=== PATIENT | male | born 1950 | race Caucasian/White ===

== ENCOUNTER → 2016-07-02 | Outpatient (CLI) | payer OTHER, MEDICARE ==
[~2016-07-02] MED LIST: AMLO-114 PO; ASPI-232 PO; ATOR-22 PO; OMEG10007 PO; TAMS0.4C38 PO
== END | disposition home or self-care (01) ==
LOC: C.LAB 10:31
PROVIDERS: ATTEND Urology
DX: R97.20 Elevated prostate specific antigen [PSA] (principal)

== ENCOUNTER → 2017-07-02 | Outpatient (CLI) | payer OTHER, MEDICARE | END | disposition home or self-care (01) | LOC: C.LAB 13:04 | PROVIDERS: ATTEND Urology | DX: R97.20 Elevated prostate specific antigen [PSA] (principal) ==

== ENCOUNTER 2019-10-27 05:09 | Inpatient (IN) ==
--- NOTE | 2019-10-21 14:43 | Anesthesiology Consultation ---
Date of Service October 21, 2019 Assessment & Plan (1) Encounter for pre-operative examination: Per nursing phone assessment on 10/19/19: Travel screen negative. No known COVID-19 positive contacts. No current COVID-19 related symptoms. Patient reports they are scheduled for COVID-19 testing to be done 10/22 at [facility]. Awaiting results. - Preop labs out of date: will check CBC, BMP, coags AM DOS Chart Review Chart Review: Acceptable Risk for Surgery (pending COVID testing (10/22) and preop labs AM DOS) History Surgery Operation Date: 10/27/19 08:50 Proposed Procedures p Right Anterior Total Hip Arthroplasty - Michael Bergman DO Height/Weight Height: 5 ft 11 in Weight: 104.326 kg Allergies Allergy/AdvReac Type Severity Reaction Status Date / Time Penicillins Allergy Unknown hives Verified 10/19/19 10:14 Medications Home Medications Medication Instructions Recorded Confirmed Last Taken alfuzosin 10 mg PO HS 08/01/19 10/19/19 Unknown amlodipine 10 mg PO QAM 08/01/19 10/19/19 Unknown aspirin [Aspir-81] 81 mg PO HS 08/01/19 10/19/19 Unknown atorvastatin 20 mg PO QAM 08/01/19 10/19/19 Unknown celecoxib 200 mg PO BID 08/01/19 10/19/19 Unknown hydrochlorothiazide 12.5 mg PO QAM 08/01/19 10/19/19 Unknown lansoprazole 15 mg PO HS 08/01/19 10/19/19 Unknown Wheeled Walker #1 ea 08/07/19 10/19/19 Unknown Past Medical History Medical History Acid reflux Well controlled and stable Foot drop, 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- wears brace Hiatal hernia History of kidney stones X1/PASSED ON OWN Hyperlipidemia Hypertension Past Surgical History Surgical History History of ankle surgery R History of colonoscopy History of lumbar surgery X2 (NO HARDWARE) Social History Smoking Status: Never smoker Do You Dip or Chew Tobacco: No Hx Alcohol Use: No alcohol intake frequency: holidays/special occasions only Hx Substance Use: No substance use type: does not use Testing Electrocardiogram Date: 08/07/19 Findings: + SB @ (56) Chest X-Ray Date: 08/07/19 Findings: + NAD
--- NOTE | 2019-10-26 07:44 | History & Physical Report ---
Date of Service October 26, 2019 Assessment & Plan (1) Osteoarthritis of right hip: We will proceed with a right anterior total of arthroplasty. Postoperatively he will be started on aspirin for DVT prophylaxis and kept overnight in the hospital for postoperative medical management. He plans to use energy therapy upon discharge. Errol is a low risk for hip replacement surgery. He does not have any major comorbidities. Present on Admission?: Yes History of Present Illness Chief Complaint: Primary osteoarthritis of the right hip Primary Care Provider: Bobby Archuleta Errol is a pleasant 69-year-old male who is been dealing with a 1 year history of increasing right hip pain. He has had x-rays and an MRI of the right hip which shows advancing osteoarthritis. After failing extensive conservative treatment, including injections, he has elected to proceed with a right anterior total hip arthroplasty. Allergies Allergy/AdvReac Type Severity Reaction Status Date / Time Penicillins Allergy Unknown hives Verified 10/19/19 10:14 Home Medications Home Medications Medication Instructions Recorded Confirmed Type alfuzosin 10 mg PO HS 08/01/19 10/19/19 History amlodipine 10 mg PO QAM 08/01/19 10/19/19 History aspirin [Aspir-81] 81 mg PO HS 08/01/19 10/19/19 History atorvastatin 20 mg PO QAM 08/01/19 10/19/19 History celecoxib 200 mg PO BID 08/01/19 10/19/19 History hydrochlorothiazide 12.5 mg PO QAM 08/01/19 10/19/19 History lansoprazole 15 mg PO HS 08/01/19 10/19/19 History Wheeled Walker #1 ea 08/07/19 10/19/19 Rx Past Med/Surg History Medical History Acid reflux Well controlled and stable Foot drop, 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- wears brace Hiatal hernia History of kidney stones X1/PASSED ON OWN Hyperlipidemia Hypertension Surgical History History of ankle surgery R History of colonoscopy History of lumbar surgery X2 (NO HARDWARE) Social History Preferred Language: Bulgarian Communication Ability: Effective Denitrator Required: No Beliefs That Will Affect Care: None Current Living Situation: Spouse Feels Safe at Home: Yes Smoking Status: Never smoker Second Hand Exposure: No ; Hx Alcohol Use: No Hx Substance Use: No Review of Systems Review of Systems: All systems reviewed & are unremarkable except as noted in HPI & below Physical Exam Constitutional: WD/WN, vitals as above Eyes: PERRL, conjunctivae normal, anicteric sclerae ENMT: external ear and nose normal, oropharynx normal Neck: trachea midline, no thyromegaly Respiratory: normal respiratory effort Cardiovascular: RRR, no murmur, no edema Gastrointestinal (Abdomen): normal bowel sounds, soft, nontender, no hepatosplenomegaly Musculoskeletal: Physical examination of the right hip reveals decreased range of motion with flexion, internal and external rotation. There is significant groin pain with forced internal rotation of the hip his leg lengths are essentially equal. Psychiatric: A+Ox3, euthymic affect Results & Data Results & Data ([facility]) Diagnostic Findings Radiographs of the right hip and pelvis demonstrate advanced osteoarthritis with joint space narrowing osteophyte formation and togx-ap-fril articulation. PG Care Time/CCT Total # of Minutes Spent Total Time Spent with Patient: Total time spent is greater than 50% in coordination of care (as documented) at patient's floor/unit and/or counseling patient: Coding Level of Care Code 63719 Initial Inpt Care Lvl 3 Diagnoses Osteoarthritis of right hip M16.11
[2019-10-27 05:45] LABS: Basophils # (auto) 0.03 K/uL (0-0.2); Basophils % (auto) 0.4 %; Eosinophils # (auto) 0.18 K/uL (0-0.5); Eosinophils % (auto) 2.2 %; Hematocrit (blood only) 48.1 % (42-52); Hemoglobin 15.7 g/dL (14.0-18.0); Immature Granulocytes # (auto) 0.03 K/uL (0.00-0.02); Immature Granulocytes % (auto) 0.4 %; Lymphocytes # (auto) 2.19 K/uL (1.2-3.4); Mean Corpuscular Hemoglobin 29.9 pg (25-34); Mean Corpuscular Volume 91.6 fL (80-100); Mean Platelet Volume 12.1 fL (7.4-10.4); Monocytes # (auto) 0.64 K/uL (0.11-0.59); Monocytes % (auto) 7.9 %; Neutrophils # (auto) 5.03 K/uL (1.4-6.5); Neutrophils % (auto) 62.1 %; Platelet Count 169 K/uL (130-400); RDW Coefficient of Variation 13.5 % (11.5-14.5); RDW Standard Deviation 45.3 fL (36.4-46.3); Red Blood Count 5.25 M/uL (4.7-6.1)
[2019-10-27 05:46] LABS: Mean Corpuscular Hgb Conc 32.6 g/dL (32-36)
[2019-10-27 05:53] LABS: Partial Thromboplastin Ratio 0.9; Partial Thromboplastin Time 25.9 Seconds (21.0-31.0); Prothrombin Time 10.9 Seconds (9.0-12.0)
[2019-10-27] MEDS ORDERED: ACETAMINOPHEN 500 MG TAB PO SCH (06:00)
[2019-10-27] MEDS ORDERED: ROPIVACAINE 0.5% HCL/PF 150 MG, BUPIVACAINE 0.5% MPF 30 ML, EPINEPHrine 30MG/30ML (OR U... INFIL SCH (06:00)
[2019-10-27] MEDS ORDERED: TRANEXAMIC ACID 1,000 MG **IV Pre-op IV SCH (06:00)
[2019-10-27] MEDS ORDERED: TRANEXAMIC ACID 1,000 MG **IV Intra-op IV SCH (06:00)
[2019-10-27] MEDS ORDERED: LR 60ML/HR IV SCH (06:00)
[2019-10-27] MEDS ORDERED: GABAPENTIN 300 MG CAP PO SCH (06:00)
[2019-10-27] MEDS ORDERED: FAMOTIDINE 20 MG TAB PO SCH (06:00)
[2019-10-27] MEDS ORDERED: CEFAZOLIN 2000MG 2,000 MG/15 ML SYR IV SCH (06:00)
[2019-10-27] MEDS ORDERED: dexAMETHasone 4 MG TAB PO SCH (06:00)
[2019-10-27 06:02] LABS: BUN Creatinine Ratio 16.7 (10-20); Calcium 8.9 mg/dl (8.5-10.1); Creatinine Clr Calc Pharmacy 68.3 ml/min; Est GFR (Non-African American) 58.7; Potassium 3.5 mmol/L (3.5-5.1)
[2019-10-27] MEDS ORDERED: CEFAZOLIN 2,000 MG/15 ML IV PUSH IV ONE (06:28)
[2019-10-27] MEDS ORDERED: PROPOFOL IV EMULSION 10 MG/ML 20 ML VIAL IV ONE ×2 (06:40→08:25)
[2019-10-27] MEDS ORDERED: LIDOCAINE HCL 2% 2 ML VIAL/AMP(20MG/ML) INFIL ONE (06:40)
[2019-10-27] MEDS ORDERED: MIDAZOLAM HCL 1 MG/ML 2ML VIAL ONE (06:41)
--- NOTE | 2019-10-27 06:41 | History & Physical Bridge Note ---
Date of Service October 27, 2019 History & Physical Bridge Note I have examined the patient, reviewed the History & Physical and in the interval since the performance of the History & Physical I have noted the following changes of clinical significance: no changes noted
[2019-10-27] MEDS ORDERED: ORTHO JOINT ANESTHETIC ONE (06:53)
[2019-10-27] MEDS ORDERED: ePHEDrine sulfate 50 MG/ML AMP ONE (07:28)
[2019-10-27] MEDS ORDERED: PHENYLEPHRINE HCL 10 MG/ML VIAL ONE (07:28)
[2019-10-27] MEDS ORDERED: ePHEDrine sulfate 50 MG/ML AMP IV PRN (08:18)
[2019-10-27] MEDS ORDERED: ATROPINE SULFATE 0.1 MG/ML 10ML SYR IV PRN (08:18)
--- NOTE | 2019-10-27 08:26 | Operative Report ---
PG Post Operative Report Pre & Post Diagnosis Operation Date: 10/27/19 07:00 Pre-Op Diagnosis: RIGHT HIP DEGENERATIVE JOINT DISEASE Post-Op Diagnosis: RIGHT HIP DEGENERATIVE JOINT DISEASE I identified the patient and participated in the time-out.: Yes Procedure Operation Date: 10/27/19 07:00 Actual Procedures p Right Anterior Total Hip Arthroplasty(Right) - Michael Bergman DO Surgeon Michael Bergman DO Engineer [employer] Michael Velazquez PAC Estimated Blood Loss 250 Findings Consistent with Post-Op Diagnosis Specimens Right femoral head Complications none Disposition Disposition: Recovery Room Indications Aldo is a pleasant 69-year-old male who is been dealing with chronic increasing right hip and groin pain. X-rays and clinical examination have been diagnostic for primary osteoarthritis of the right hip. After failing conservative treatment, he has elected to proceed with a right anterior total hip arthroplasty. Description of Procedure Implants used I used a Biomet Taperloc total hip arthroplasty system with a size 13 high offset micro Taperloc stem, a 58 mm G7 cup with a 25mm screw, an E1 polyethylene liner, a 40 mm ceramic head with a +3 neck. Aldo arrived at the hospital for the above procedure. He was seen in the preoperative holding area and the operative extremity was identified and signed. He was given a spinal anesthetic, a preoperative antibiotic, and TXA. He was then taken back to the operating room and laid on the table in the supine position. He was given basic sedation. The operative leg was secured to a Puristst leg positioner. The hip was then prepped and draped in sterile fashion. A timeout was done and the patient and the operative extremity was properly identified. An anterior approach was used. Dissection was taken down through the fascia and the tensor muscle belly was retracted laterally and the rectus was retracted medially. The circumflex vessels were identified and ligated. The capsule was then incised and tagged for later repair. The femoral neck was then cut and the femoral head was removed. The acetabulum was exposed. Time was spent doing a complete circumferential labral release. Sequential reaming of the acetabulum up to a size 57 reamer was done. Final reamings were done under fluoroscopy to ensure appropriate version. A Biomet 58 mm G7 cup was then impacted into place. A single 25 mm screw was placed. The E1 polyethylene liner was then snapped into place. Surrounding soft tissues were then injected with 100 cc of an orthopedic pain control cocktail. The proximal femur was then exposed. Sequential broaching up to a size 13 broach was done. Off that broach a size 40 head with a +3 neck was trialed. The hip was reduced and fluoroscopic images showed anatomic alignment of the implants in acceptable length. The broach was removed. The final size 13 high offset micro Taperloc stem was then impacted into place. A ceramic 40 mm head with a +3 neck was then impacted onto the stem and the hip was reduced. Final fluoroscopic images showed anatomic alignment of the hip. The capsule was then closed with #1 Vicryl suture. A dilute betadyne lavage was then done for 3 minutes. The joint was then irrigated with normal saline solution. The fascia was closed with #1 PDS suture. Skin was closed with 2-0 Vicryl, ketty, and a Louise VAC dressing. He was then transferred to a hospital bed and taken to the post anesthesia care unit in stable condition. He tolerated the procedure well. Michael Velazquez PA-C, was present for the entire procedure. He was critical for patient positioning, prepping, draping, retraction exposure, wound closure and application of sterile dressing. I attest to the content of the Intraoperative Record and any orders documented therein. Any exceptions are noted below.
--- NOTE | 2019-10-27 09:09 | Fluoroscopy Report ---
FL hip RT 1V CLINICAL HISTORY: RT ANTERIOR HIP COMPARISON STUDY: None. FLUOROSCOPY TIME: 26 seconds.. FINDINGS: 2 fluoroscopic spot images of the right hip demonstrate a right total hip arthroplasty. The hardware is intact. No fracture or dislocation. IMPRESSION: ACT 112: Negative or not required by law. Electronically signed by: Wil Almodovar M.D. 10/27/2019 9:08 AM
--- NOTE | 2019-10-27 09:25 | XRay Report ---
AP PELVIS, CROSSTABLE LATERAL RIGHT HIP History: Right total hip arthroplasty. Degenerative arthritis. Postop. FINDINGS: The patient is status post a right total hip arthroplasty. The hardware is intact. Skin sta ples are in place. On the lateral view there is a subtle small linear lucency extending from the tip of the femoral prosthesis. This could represent a vascular channel or nondisplaced fracture. IMPRESSION: Right total hip arthroplasty. Subtle small linear lucency extending from the tip of the femoral prost hesis which could represent a vascular channel or nondisplaced fracture. This finding was called/faxe d to referring physician following dictation. ACT 112: Negative or not required by law. Electronically signed by: Wil Almodovar M.D. 10/27/2019 9:24 AM
--- NOTE | 2019-10-27 10:00 | Anesthesiology Progress Note ---
Date of Service October 27, 2019 Anesthesia Post Procedure Vital Signs Vital Signs: Temp Pulse Pulse Resp BP BP Pulse Ox 10/27/19 09:55 55 L 10 L 99/62 L 98 10/27/19 09:45 58 L 16 98/59 L 98 10/27/19 09:35 54 L 11 L 94/62 L 98 10/27/19 09:25 69 12 93/56 L 98 10/27/19 09:15 58 L 10 L 98/62 L 97 10/27/19 09:05 60 13 92/62 L 97 10/27/19 08:55 63 15 88/61 L 98 10/27/19 08:48 36.5 C 74 20 83/57 L 94 10/27/19 05:36 36.8 C 66 16 140/91 95 Pain Intensity Right Hip: Pain Intensity: 0 Transfer of Care Handoff Completed per policy Notes Mental Status: alert / awake / arousable and participated in evaluation Nausea / Vomiting: adequately controlled Pain: adequately controlled Airway Patency, RR, SpO2: stable & adequate BP & HR: stable & adequate Hydration State: stable & adequate Neuraxial Anesthesia: was administered and sensory block is resolving Anesthetic Complications: no major complications apparent and Pt Satisfied with anesthetic care
[2019-10-27] MEDS ORDERED: [UNRECOGNIZED DRUG - OTHER] SCH (10:29)
[2019-10-27] MEDS ORDERED: WALKER SCH (10:29)
[2019-10-27] MEDS ORDERED: METOCLOPRAMIDE HCL INJ 5 MG/ML 2 ML VIAL IV PRN (10:29)
[2019-10-27] MEDS ORDERED: ONDANSETRON INJ 2 MG/ML 2 ML VIAL IV PRN (10:29)
[2019-10-27] MEDS ORDERED: MAGNESIUM HYDROXIDE SUSP 30 ML UDC PO PRN (10:29)
[2019-10-27] MEDS ORDERED: HYDROmorphone INJ 0.5 MG/0.5 ML SYR IV PRN (10:29)
[2019-10-27] MEDS ORDERED: bisacodyL 10 MG SUPP PR PRN (10:29)
[2019-10-27] MEDS ORDERED: NALOXONE HCL 0.4 MG/1 ML VIAL/CARP IV PRN (10:29)
[2019-10-27] MEDS ORDERED: PNEUMOCOCCAL ADMINISTRATION CHARGE ONE (11:04)
[2019-10-27] MEDS ORDERED: PNEUMOCOCCAL POLYSACCHARIDES 25 MCG/0.5 ML VIAL/SYR IM ONE (11:04)
[2019-10-27] MEDS: SODIUM CHLORIDE 0.9% 1000ML 1,000 ML IV SCH ×2 (11:10→20:56)
[2019-10-27] MEDS: KETOROLAC 30 MG/ML VIAL IV SCH ×3 (11:19→23:35)
[2019-10-27] MEDS: hydroCHLOROthiazide 25 MG TAB PO SCH (11:21)
[2019-10-27] MEDS: DOCUSATE SODIUM 100 MG CAP PO SCH ×2 (11:21→21:00)
[2019-10-27] MEDS: MULTIVITAMIN TAB PO SCH (11:22)
[2019-10-27] MEDS: ATORVASTATIN 20 MG TAB PO SCH (11:22)
[2019-10-27] MEDS: AMLODIPINE BESYLATE 5 MG TAB PO SCH (11:22)
[2019-10-27] MEDS: ASPIRIN 81 MG ECTAB PO SCH ×2 (11:23→20:59)
[2019-10-27] MEDS: CEFAZOLIN 2000MG 2,000 MG/15 ML SYR IV SCH ×2 (14:07→22:08)
[2019-10-27] MEDS: ACETAMINOPHEN 500 MG TAB PO SCH ×2 (14:07→21:01)
[2019-10-27] MEDS ORDERED: ALFUZOSIN HCL 10 MG TAB PO SCH (21:00)
[2019-10-27] MEDS ORDERED: SENNA 8.6 MG TAB PO SCH (21:00)
[2019-10-27] MEDS ORDERED: PANTOprazole 40 MG TAB PO SCH (21:00)
[2019-10-28] MEDS: ACETAMINOPHEN 500 MG TAB PO SCH ×2 (05:53→13:02)
[2019-10-28] MEDS: KETOROLAC 30 MG/ML VIAL IV SCH ×2 (05:53→12:39)
[2019-10-28 06:10] LABS: Basophils # (auto) 0.01 K/uL (0-0.2); Basophils % (auto) 0.1 %; Hematocrit (blood only) 38.6 % (42-52); Hemoglobin 12.9 g/dL (14.0-18.0); Immature Granulocytes # (auto) 0.03 K/uL (0.00-0.02); Immature Granulocytes % (auto) 0.2 %; Lymphocytes # (auto) 0.88 K/uL (1.2-3.4); Lymphocytes % (auto) 6.7 %; Mean Corpuscular Hemoglobin 30.4 pg (25-34); Mean Corpuscular Hgb Conc 33.4 g/dL (32-36); Mean Corpuscular Volume 90.8 fL (80-100); Mean Platelet Volume 11.7 fL (7.4-10.4); Monocytes # (auto) 0.79 K/uL (0.11-0.59); Neutrophils # (auto) 11.39 K/uL (1.4-6.5); Platelet Count 146 K/uL (130-400); RDW Coefficient of Variation 13.4 % (11.5-14.5); RDW Standard Deviation 44.1 fL (36.4-46.3); Red Blood Count 4.25 M/uL (4.7-6.1)
[2019-10-28 06:43] LABS: BUN Creatinine Ratio 17.7 (10-20); Calcium 8.5 mg/dl (8.5-10.1); Creatinine Clr Calc Pharmacy 77.1 ml/min; Est GFR (African American) 78.7; Est GFR (Non-African American) 67.9; Potassium 3.6 mmol/L (3.5-5.1)
--- NOTE | 2019-10-28 06:48 | Orthopedic Progress Note ---
Date of Service October 28, 2019 Assessment & Plan (1) History of right hip replacement: Overall he is doing very well. He is not having much pain in the right hip. He can be up and ambulating today with physical therapy. He is on aspirin for DVT prophylaxis. He can be discharged home later today. He will follow-up with orthopedics in 2 weeks. Present on Admission?: Yes Subjective Errol was seen and examined at bedside this morning. Overall he is doing very well. He is not having too much pain in the right hip. He has been up and ambulating to the bathroom. His pain is controlled and he has no complaints. Physical Exam Musculoskeletal: On physical examination of the right hip, the Louise VAC dressing is to suction. His leg lengths are equal. He has active dorsiflexion and plantarflexion of his right ankle. Sensation is intact. Results & Data ([facility]) Vital Signs (Past 12 Hours) Vital Signs Temp Pulse Resp BP Pulse Ox 10/28/19 02:42 36.5 C 58 L 16 111/68 95 10/27/19 23:30 36.5 C 55 L 16 116/68 97 10/27/19 19:25 36.4 C L 75 17 122/78 95 Laboratory Results H & H 10/27/19 10/28/19 Range/Units 05:26 05:57 Hgb 15.7 12.9 L (14.0-18.0) g/dL Hct 48.1 38.6 L (42-52) % Coagulation 10/27/19 Range/Units 05:26 INR 1.0 (0.9-1.1) Diagnostic Findings Postoperative x-rays of the right hip show the prosthesis to be in anatomic alignment without any evidence of fracture, dislocation, or loosening. There is a small nutrient vessel which was pointed out by the radiologist on x-ray. This does not appear to be any sort of fracture. PG Care Time/CCT Total # of Minutes Spent Total Time Spent with Patient: Total time spent is greater than 50% in coordination of care (as documented) at patient's floor/unit and/or counseling patient: Coding Level of Care Code None Diagnoses History of right hip replacement Z96.641
--- NOTE | 2019-10-28 06:50 | Discharge Summary ---
Date of Service October 28, 2019 Admission HPI Per Admitting Provider Errol is a pleasant 69-year-old male who is been dealing with a 1 year history of increasing right hip pain. He has had x-rays and an MRI of the right hip which shows advancing osteoarthritis. After failing extensive conservative treatment, including injections, he has elected to proceed with a right anterior total hip arthroplasty. Principal Diagnosis Right total hip arthroplasty Discharge Data Allergies Allergy/AdvReac Type Severity Reaction Status Date / Time Penicillins Allergy Unknown hives Verified 10/27/19 05:30 Consultations 10/28/19 08:00 Consult Case Management - Discharge Planning Routine Procedures Performed Operation Date: 10/27/19 07:00 Actual Procedures p Right Anterior Total Hip Arthroplasty(Right) - Michael Bergman DO Ordered Studies 10/27/19 07:00 FL fluoroscopy <1hr Routine FL hip RT 1V Routine Hospital Course (1) History of right hip replacement: On October 27, 2019 Errol arrived at [facility] and underwent a right total hip arthroplasty without complication. He had a spinal anesthetic. Postoperatively he was started on aspirin for DVT prophylaxis and transferred to the general orthopedic floors. His hospital course was uneventful. On postop day #1 his H&H was stable and his pain was well controlled. He was able to participate well with physical therapy doing ambulation and range of motion exercises. He was then discharged to home. He will follow-up with orthopedics in 2 weeks. Total Time Total Time Spent Total Time Spent (In Minutes): 20 Discharge Plan Discharge Items Patient Disposition: Home - Home Health Services Reason For Visit: RIGHT HIP DEGENERATIVE JOINT DISEASE Discharge Diagnosis: Right total hip arthroplasty Activity: As commented below Non-emergency contact: Surgeon Call non-emergency contact if: your wound has increased redness and your wound has increased drainage Follow-up/Referrals: Bobby Archuleta [Primary Care Provider] - Diet: Regular Addtl Attending Provider Instructions: Activity and Therapy Recommendations: * If you are using [facility] then therapy will be provided at your home until they feel you have accomplished all of your goals. * If you are using [facility] then Physical Therapy will be provided until they feel you are ready to start Outpatient Physical Therapy. * If you are not using home therapy then Outpatient Physical Therapy should start about 3-5 days from your day of surgery. Therapy will last about 6-10 weeks * You were shown a series of exercises in the hospital. Do these exercises three times each day including the exercises you were shown in physical therapy. * Get up and walk several times each day.~ For the first four weeks, try not to stand or walk for more than one hour at a time. If you do stand or walk for more than one hour, you will not hurt anything, but your leg will likely swell.~~ * As you feel comfortable, you may change from the walker or crutches to a cane and~then to independent walking. Medications: * Narcotic You will likely be sent home from the hospital with a prescription for the narcotic pain medication that worked best throughout your stay. * Aspirin Most patients will be required to take Aspirin 81mg twice a day for 6 weeks after surgery. This is obtained [id number] and a prescription is not necessary. * Other medications may be prescribed for specific circumstances. If you have any questions, please call the office at . * Resume previous home medications unless otherwise instructed TEDs/Elastic Stockings: The white elastic stockings help limit swelling and prevent blood clots from forming in your legs. The more you wear them, the more they work. Wear them for six weeks. Dressing Care: You will likely have a purple VAC dressing after surgery. This dressing will keep the incision dry and promote early healing. After about 7 days the batteries will wear out and the VAC will lose suction. Simply remove the dressing at that time and throw everything away, including the small suction machine. Then, you may leave the ketty open to air or cover them with a dry dressing so they do not rub on your pants. The ketty will be removed at your 2 week follow-up appointment. Showering: You may shower immediately with the purple VAC dressing. Let the shower spray hit your opposite side and slowly pat the plastic dry. Do not soak the dressing. After the dressing is removed you may shower normally with the ketty exposed. Let soapy water run over the ketty and pat them dry. Things To Watch For: * Drainage from the incision site that occurs more than one week after your surgery. * Increased redness at the incision site. * Fever above 102 degrees Fahrenheit. * Unusual chest pain or shortness of breath. * Call [facility] at with any of the above problems Follow-Up Visit: Follow-up with Dr. Bergman's PA (Michael Velazquez) 2-3 weeks after your day of surgery. He will remove your ketty and answer any questions. If you have any additional questions or concerns, Dr Bergman is usually in the office at the same time and will be available An appointment was probably scheduled when you signed-up for surgery in the office. If you have any questions call Office Instructions: More detailed instructions as well as Frequently Asked Questions were provided in a folder by our office when you signed-up for surgery. Please review these instructions when you get home. If you have any further questions or concerns, please feel free to call the office at [phone] Pending Studies at Discharge: No Stand-Alone Forms: My [facility] [employer], Smoking Cessation Medications and DC Order Prescriptions: New oxycodone 5 mg Tablet 5 mg PO Q4H PRN (Reason: pain) Qty: 30 RF: 0 Continued (DME) Jordan Walker Misc See Rx Instructions .ROUTE .MEDSUPPLY Qty: 1 RF: 0 celecoxib 200 mg Capsule 200 mg PO BID RF: 0 atorvastatin 20 mg Tablet 20 mg PO QAM RF: 0 amlodipine 10 mg Tablet 10 mg PO QAM RF: 0 lansoprazole 15 mg Capsule,Delayed Release(Dr/Ec) 15 mg PO HS RF: 0 hydrochlorothiazide 12.5 mg Tablet 12.5 mg PO QAM RF: 0 alfuzosin 10 mg tablet extended release 24 hr 10 mg PO HS RF: 0 Changed aspirin [Aspir-81] 81 mg Tablet,Delayed Release (Dr/Ec) 81 mg PO BID Qty: 84 RF: 0 Discharge Orders: Discharge Order (Routine); Ordered 10/28/19 Ordered By: Michael Bergman Admission Data Admit Date/Time: 10/27/19 08:46 Attending Provider: Michael Bergman Admit Provider: Michael Bergman Primary Care Provider: Bobby Archuleta Coding Level of Care Code D/C Day Management <30 mins Diagnoses History of right hip replacement Z96.641
[2019-10-28] MEDS ORDERED: dexAMETHasone 4 MG TAB PO SCH (08:00)
[2019-10-28] MEDS: ASPIRIN 81 MG ECTAB PO SCH (08:53)
[2019-10-28] MEDS: ATORVASTATIN 20 MG TAB PO SCH (08:53)
[2019-10-28] MEDS: DOCUSATE SODIUM 100 MG CAP PO SCH (08:53)
[2019-10-28] MEDS: hydroCHLOROthiazide 25 MG TAB PO SCH (08:53)
[2019-10-28] MEDS: MULTIVITAMIN TAB PO SCH (08:54)
[2019-10-28] MEDS: AMLODIPINE BESYLATE 5 MG TAB PO SCH (08:54)
[2019-10-28] MEDS: OXYCODONE HCL IR 5 MG TAB (IMMEDIATE RELEASE) PO PRN ×2 (08:56→13:02)
[2019-10-28] MEDS ORDERED: KETOROLAC TROMETHAMINE 15 MG/ML VIAL IV SCH (18:00)
[2019-10-29] MEDS ORDERED: CeleBREX 200 MG CAP PO SCH (12:00)
== END 2019-10-28 13:23 | disposition home health service (06) | DRG 470 ==
LOC: ASU 05:09 → 3E 08:46

== ENCOUNTER 2021-11-30 12:51 | Inpatient (IN) ==
[2021-11-30] MEDS ORDERED: ONDANSETRON INJ 2 MG/ML 2 ML VIAL IV STA (13:22)
[2021-11-30] MEDS ORDERED: MoRPHine SULFATE 10 MG/ML CARP/VIAL IV STA (13:22)
--- NOTE | 2021-11-30 13:27 | Emergency Department Note ---
Impression & Plan Abdominal pain, Cholelithiasis ED Provider Note NAME: ALEJANDRINA BACH AGE: 71 SEX: M : 1950 ARRIVES VIA: Walk-In INFORMANT: Patient ED PROVIDER(S): Jasiel Villagran DO CHIEF COMPLAINT: Epigastric abdominal pain HPI: Patient is a 71-year-old male with a past medical history of hypertension and hyperlipidemia that presents the ER for epigastric abdominal pain which occurred 30 minutes after eating. He describes as a sharp stabbing pain going through to his back associated with nausea but no vomiting. Describes pain as an 8 out of 10. No dysuria, urgency, or frequency. No arm pain or jaw pain. No shortness of breath. No other exacerbating or remitting factors. Does have a history of gallstones/cholelithiasis. ROS: See above HPI for pertinent positives & negatives. A total of 10 systems reviewed and were otherwise negative. PAST MEDICAL HISTORY:See Below PAST SURGICAL HISTORY:See Below FAMILY HISTORY:See Below SOCIAL HISTORY:See Below HOME MEDICATIONS:See Below ALLERGIES:See Below VITALS:See Below PHYSICAL EXAMINATION: GENERAL: Sitting up in bed, alert, well appearing, well nourished, no distress, non-toxic EYE EXAM: normal conjunctiva. OROPHARYNX: no exudate, no erythema, lips, buccal mucosa, and tongue normal and mucous membranes are moist NECK: supple, no nuchal rigidity, no adenopathy, non-tender LUNGS: Clear to auscultation. Normal chest wall mechanics HEART: no murmurs, S1 normal and S2 normal ABDOMEN: abdomen soft, tender to palpation in the epigastric/right upper quadrant, normo-active bowel sounds, no masses, no rebound or guarding. UPPER EXTREMITIES: upper extremities are grossly normal. LOWER EXTREMITIES: No pitting edema. NEURO EXAM: Normal sensorium, cranial nerves II-XII grossly intact, normal speech, no gross weakness of arms, no gross weakness of legs. MEDICAL DECISION MAKING: Patient is a 71-year-old male who presents ER for above-stated complaint. IV was established blood work was obtained. Labs show no significant leukocytosis or anemia. BMP with mild hypokalemia 3.1. LFTs bilirubin was unremarkable. Lipase was normal. Troponin was negative. COVID was negative. CT abdomen pelvis shows cholelithiasis with a large CBD measuring 12 mm. Pain is focal in the epigastric/right upper quadrant. EKG is slightly different than previous but he does have reproducible pain is in the epigastric region which is worse after eating do favor that this likely GI in origin especially with a negative troponin although repeat will likely need to be trended. He was given morphine and Zofran and his symptoms improved significantly. He was updated bedside. Discussed with the hospitalist for further evaluation. Triage Nursing notes reviewed. Limited review of prior medical records performed Vital Signs: reviewed and remarkable for no significant abnormalities Differential diagnosis: Differential diagnoses includes but is not limited to gastritis, peptic ulcer disease, GERD, gallbladder disease, pancreatitis, small bowel obstruction, acute coronary syndrome, pericarditis, ischemic bowel, irritable bowel disease, irritable bowel syndrome, appendicitis, diverticulitis, malignancy, hernia, urinary tract infection, torsion, perforation, trauma, infectious. ER treatment provided: See below Diagnostics interpreted by me: ECG: Sinus rhythm rate of 61 Normal axis No PVCs QTC [address] wave changes in aVF ST wave changes in aVF are new from 2020 Cardiac Monitoring: An order was placed for continuous cardiac monitoring. The monitor shows a rate of 60 with sinus rhythm. Laboratory studies: As stated above and show below. Imaging studies: CT abdomen pelvis as described above Consultation(s): Discussed with Weston Zuleta for further evaluation Procedures: none Critical Care: None Past Med/Surg History Medical History Acid reflux Back problem Chronic prostatitis Foot drop, left Hiatal hernia History of kidney stones Hypertension Nephrolithiasis Surgical History H/O wrist surgery History of ankle surgery History of colonoscopy History of lumbar surgery History of rectal surgery History of right hip replacement (~10/2019) History of umbilical hernia repair (01/14/21) Hx of vasectomy S/P hernia surgery Family History Father Cardiac disorder Cancer Heart disease Myocardial infarction Denies family history of Ovarian cancer Prostate cancer Breast cancer Colorectal cancer Social History Smoking Status: Unknown if ever smoked Second Hand Exposure: No; Hx Alcohol Use: Yes Alcohol type: hard liquor Alcohol Intake Frequency: Monthly or Less Hx Substance Use: No Preferred Language: Khmer Communication Ability: Effective Visual Impairment: No Limitations Hearing Ability: Normal Tie In Hand Required: No Beliefs That Will Affect Care: None marital status: Current Living Situation: Spouse current occupational status: retired 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 How many Children do You have: 2 Feels Safe at Home: Yes Childhood Exposure to Second-Hand Smoke: No during the past year weight has: remained stable Dental Care, Regularly: Yes Physical Activity Frequency: Does not Exercise Seatbelt Use: always Sunscreen Use: Yes Assistive Devices: Brace/Splint/Immobilizer, Contacts and Glasses Allergies Allergies Allergy/AdvReac Type Severity Reaction Status Date / Time Penicillins Allergy Unknown hives Verified 10/28/21 08:35 Home Meds Home Medications Medication Instructions Recorded Confirmed amlodipine 10 mg tablet 10 mg PO QAM 08/01/19 10/28/21 atorvastatin 20 mg tablet 20 mg PO QAM 08/01/19 10/28/21 hydrochlorothiazide 12.5 mg tablet 12.5 mg PO QAM 08/01/19 10/28/21 ascorbic acid (vitamin C) 1,000 mg 1 g PO QAM 12/10/20 10/28/21 tablet cholecalciferol (vitamin D3) 50 50 mcg PO QAM 12/10/20 10/28/21 mcg (2,000 unit) capsule aspirin 81 mg tablet,delayed 81 mg PO QPM 01/08/21 10/28/21 release Previous Rx's Medication Instructions Recorded clindamycin HCl 300 mg capsule 600 mg PO ONCE #2 cap 02/19/21 finasteride 5 mg tablet 5 mg PO DAILY #90 tab 05/21/21 varicella-zoster glycoE [id number] 0.5 ml IM .COMPLEX #1 ea 05/27/21 adj(PF) 50 mcg/0.5 mL IM susp, kit (Shingrix (PF)) alfuzosin 10 mg tablet,extended 10 mg PO DAILY #90 tab 08/04/21 release 24 hr omeprazole 20 mg capsule,delayed 20 mg PO DAILY #90 cap 10/21/21 release nirmatrelvir 300 mg (150 mg x See Rx Instructions PO .COMPLEX 11/14/21 2)-ritonavir 100 mg tablet (EUA) #30 tab (Paxlovid 300 mg () Results & Data (ED) Vital Signs Vital Signs - 24 hr 11/30/21 12:56 11/30/21 13:07 11/30/21 13:21 Temperature 36.6 C Temperature Source Oral Pulse Rate 65 Pulse Rate [Apical] 61 Pulse Rate from SpO2 Sensor Pulse Rhythm Regular Pulse Strength Normal Respiratory Rate 22 14 Respiratory Effort / Characteristics Non-Labored Respiratory Depth Normal Blood Pressure 136/86 Blood Pressure [Left Arm] 128/88 Blood Pressure Mean 102 Blood Pressure Mean [Left Arm] 101 Pulse Oximetry 96 96 Oxygen Delivery Method Room Air Room Air Sepsis New/Unexplained Change in Mental Status No Sepsis Action Taken by Nursing No Action Required 11/30/21 13:30 11/30/21 14:00 11/30/21 14:30 Temperature Temperature Source Pulse Rate 58 L 53 L 63 Pulse Rate [Apical] Pulse Rate from SpO2 Sensor 59 L 55 L 63 Pulse Rhythm Pulse Strength Respiratory Rate 12 12 13 Respiratory Effort / Characteristics Respiratory Depth Blood Pressure 127/81 115/77 133/82 Blood Pressure [Left Arm] Blood Pressure Mean 96 89 99 Blood Pressure Mean [Left Arm] Pulse Oximetry 96 91 98 Oxygen Delivery Method Room Air Sepsis New/Unexplained Change in Mental Status Sepsis Action Taken by Nursing 11/30/21 15:00 11/30/21 15:30 11/30/21 16:00 Temperature Temperature Source Pulse Rate 59 L 59 L 60 Pulse Rate [Apical] Pulse Rate from SpO2 Sensor 59 L 60 61 Pulse Rhythm Pulse Strength Respiratory Rate 13 13 15 Respiratory Effort / Characteristics Respiratory Depth Blood Pressure 125/79 120/83 Blood Pressure [Left Arm] Blood Pressure Mean 94 95 Blood Pressure Mean [Left Arm] Pulse Oximetry 95 93 95 Oxygen Delivery Method Room Air Room Air Sepsis New/Unexplained Change in Mental Status Sepsis Action Taken by Nursing Laboratory Data Result diagrams: 11/30/21 13:05 11/30/21 13:05 Lab Results 11/30/21 11/30/21 11/30/21 Range/Units 13:05 13:05 15:05 WBC 8.70 (4.8-10.8) K/ul RBC 4.86 (4.63-6.08) M/uL Hgb 15.1 (14.0-18.0) g/dl Hct 43.6 (40.1-51.0) % MCV 89.7 (80.0-100.0) fL MCH 31.1 (25.0-34.0) pg MCHC 34.6 (32.0-36.0) g/dL RDW Std Deviation 43.0 (36.4-46.3) fL RDW Coeff of Taz 13.1 (11.5-14.5) % Plt Count 194 (130-400) K/uL MPV 12.4 (9.4-12.4) fL Immature Gran % (Auto) 0.3 % Neut % (Auto) 51.7 % Lymph % (Auto) 33.4 % [place] % (Auto) 11.8 % Eos % (Auto) 2.2 % Baso % (Auto) 0.6 % Neut # (Auto) 4.49 (1.4-6.5) K/uL Lymph # (Auto) 2.91 (1.2-3.4) K/uL [place] # (Auto) 1.03 H (0.24-0.82) K/uL Eos # (Auto) 0.19 (0-0.50) K/uL Baso # (Auto) 0.05 (0-0.2) K/uL Immature Gran # (Auto) 0.03 H (0.00-0.02) K/uL Sodium 140 (136-145) mmol/L Potassium 3.1 L (3.5-5.1) mmol/L Chloride 105 (98-107) mmol/L Carbon Dioxide 26 (21-32) mmol/L Anion Gap 9 (3-11) BUN 17 (6-23) mg/dl Creatinine 1.12 (0.6-1.4) mg/dl Est Cr Clr Drug Dosing Not Reportable Est GFR ( Amer) 75.1 ml/min Est GFR (Non-Af Amer) 64.8 ml/min BUN/Creatinine Ratio 15.2 (10-20) Glucose 106 H (70-99(Fasting)) mg/dl Calcium 9.0 (8.5-10.1) mg/dl Total Bilirubin 0.8 (0.2-1.0) mg/dl AST 41 H (13-39) U/L ALT 50 (7-52) U/L Alkaline Phosphatase 82 (34-104) U/L Troponin I High Sens 9.6 (0-20) pg/ml Total Protein 7.0 (6.0-8.3) gm/dl Albumin 4.0 (3.4-5.0) gm/dl Globulin 3.0 (2.5-4.0) gm/dl Albumin/Globulin Ratio 1.3 (0.9-2) Lipase 42 (11-82) U/L SARS-CoV-2, RNA, NAAT NEGATIVE (NEGATIVE) Administered Medications Discontinued Medications Ioversol (Optiray 320 100ml) 94 ml IV ONCE ONE Stop: 11/30/21 14:09 Last Admin: 11/30/21 14:11 Dose: 94 ml Documented by: [id number] Morphine Sulfate (Morphine Sulfate 10 Mg/Ml Carp/Vial) 6 mg IV NOW STA Stop: 11/30/21 13:23 Last Admin: 11/30/21 13:40 Dose: Not Given Documented by: [id number] Morphine Sulfate (Morphine Sulfate 4 Mg/Ml 1 Ml Carp\Vial) Confirm Administered Dose 4 mg .ROUTE .STK-MED ONE Stop: 11/30/21 13:38 Last Admin: 11/30/21 13:39 Dose: 4 mg Documented by: [id number] Morphine Sulfate (Morphine Sulfate 2 Mg/Ml Carp) Confirm Administered Dose 2 mg .ROUTE .STK-MED ONE Stop: 11/30/21 13:38 Last Admin: 11/30/21 13:39 Dose: 2 mg Documented by: [id number] Ondansetron HCl (Ondansetron Inj 2 Mg/Ml 2 Ml Vial) 4 mg IV NOW STA Stop: 11/30/21 13:23 Last Admin: 11/30/21 13:39 Dose: 4 mg Documented by: [id number] Imaging Data Radiologist's Impression: Chest X-Ray 11/30/21 13:16 XR chest 1V portable CLINICAL HISTORY: Chest Pain TECHNIQUE: Single frontal radiograph of the chest was obtained. Comparison: Comparison is made to chest radiograph 08/07/2019 FINDINGS: No lines and tubes are seen. The cardiomediastinal silhouette is normal. Lungs are underinflated but clear. No evidence of pleural effusion or pneumothorax. IMPRESSION: No acute chest disease. ACT 112: Negative or not required by law. Electronically signed by: Saúl Stone M.D. 11/30/2021 1:56 PM Abdomen/Pelvis CT 11/30/21 13:22 CT abd pelvis IV con only CLINICAL HISTORY: abd pain epigastric after eating ? roel TECHNIQUE: Helical axial images of the abdomen and pelvis were obtained and displayed. Automated dose lowering techniques and/or adjustment according to patient size were utilized for this exam. This exam was performed with intravenous contrast. CT DOSE: 1254.58 mGy.cm COMPARISON: None available at the time of this dictation. FINDINGS: Lower chest: No acute abnormality Liver: Subcentimeter hypodensities in the liver are too small to characterize. A left hepatic cyst is noted. Gallbladder and biliary tree: Cholelithiasis is seen without evidence of cholecystitis. There is dilation of the common bile duct measuring up to 12 mm in diameter. There is suggestion of a layering stone in the midportion of the duct. No definite distal obstruction is seen. Pancreas: Unremarkable, no focal lesions. Spleen: Unremarkable. Adrenals: A left lipid rich adenoma is seen. Kidneys and ureters: Previously noted renal cysts are stable. Bladder: Unremarkable. Reproductive organs: Unremarkable. Bowel: Diverticulosis is seen without evidence of diverticulitis. Lymph nodes Retroperitoneal: Unremarkable. Mesenteric: Unremarkable. Pelvic: Unremarkable. Peritoneum: Normal. Vessels: Atherosclerotic calcifications are seen. Abdominal wall: Left fat containing inguinal hernia. Bones: Total right hip arthroplasty is seen. Degenerative changes are seen in the spine. IMPRESSION: Cholelithiasis without evidence of cholecystitis. There is dilation of the commo n bile duct to 12 mm. There is suggestion of ductal stone although no definite obstructive stone is seen. If there is clinical concern for choledocholithiasis, MRCP can be performed. ACT 112: Negative or not required by law. Electronically signed by: Saúl Stone M.D. 11/30/2021 2:42 PM Discharge Plan Visit Data Chief Complaint: Chest Pain Stated Complaint: CHEST PAIN ED Provider: Jasiel Villagran Discharge Problem: Abdominal pain, Cholelithiasis Forms Stand Alone Forms: My [facility] [employer] Prescriptions Prescriptions: No Action clindamycin HCl 300 mg capsule 600 mg PO ONCE Qty: 2 RF: 3 finasteride 5 mg tablet 5 mg PO DAILY Qty: 90 RF: 3 alfuzosin 10 mg tablet extended release 24 hr 10 mg PO DAILY Qty: 90 RF: 3 omeprazole 20 mg capsule,delayed release(DR/EC) 20 mg PO DAILY Qty: 90 RF: 1 Paxlovid (EUA) 150 mg x 2- 100 mg tablet See Rx Instructions PO .COMPLEX Qty: 30 RF: 0 Shingrix (PF) 50 mcg/0.5 mL suspension for reconstitution 0.5 ml IM .COMPLEX Qty: 1 RF: 1 ascorbic acid (vitamin C) 1,000 mg tablet 1 g PO QAM RF: 0 cholecalciferol (vitamin D3) 50 mcg (2,000 unit) capsule 50 mcg PO QAM RF: 0 atorvastatin 20 mg Tablet 20 mg PO QAM RF: 0 amlodipine 10 mg Tablet 10 mg PO QAM RF: 0 hydrochlorothiazide 12.5 mg Tablet 12.5 mg PO QAM RF: 0 aspirin 81 mg tablet,delayed release (DR/EC) 81 mg PO QPM RF: 0 Referrals Referrals: Barrett Whitney DO [Primary Care Provider] - Discharge Problem: Abdominal pain Qualifiers: Abdominal location: unspecified location Qualified Code(s): R10.9 - Unspecified abdominal pain Cholelithiasis Qualifiers: Cholelithiasis location: gallbladder Cholecystitis acuity: unspecified acuity
[2021-11-30] MEDS ORDERED: MoRPHine SULFATE 2 MG/ML CARP ONE (13:37)
[2021-11-30] MEDS ORDERED: MoRPHine SULFATE 4 MG/ML 1 ML CARP\\VIAL ONE (13:37)
[2021-11-30 13:41] LABS: Basophils # (auto) 0.05 K/uL (0-0.2); Basophils % (auto) 0.6 %; Eosinophils # (auto) 0.19 K/uL (0-0.50); Eosinophils % (auto) 2.2 %; Hematocrit (blood only) 43.6 % (40.1-51.0); Hemoglobin 15.1 g/dl (14.0-18.0); Immature Granulocytes # (auto) 0.03 K/uL (0.00-0.02); Immature Granulocytes % (auto) 0.3 %; Lymphocytes # (auto) 2.91 K/uL (1.2-3.4); Lymphocytes % (auto) 33.4 %; Mean Corpuscular Hemoglobin 31.1 pg (25.0-34.0); Mean Corpuscular Hgb Conc 34.6 g/dL (32.0-36.0); Mean Corpuscular Volume 89.7 fL (80.0-100.0); Mean Platelet Volume 12.4 fL (9.4-12.4); Monocytes # (auto) 1.03 K/uL (0.24-0.82); Monocytes % (auto) 11.8 %; Neutrophils # (auto) 4.49 K/uL (1.4-6.5); Neutrophils % (auto) 51.7 %; Platelet Count 194 K/uL (130-400); RDW Coefficient of Variation 13.1 % (11.5-14.5); Red Blood Count 4.86 M/uL (4.63-6.08)
[2021-11-30 13:51] LABS: Alanine Aminotransferase 50 U/L (7-52); Albumin Globulin Ratio 1.3 (0.9-2); Alkaline Phosphatase 82 U/L (34-104); Anion Gap 9 (3-11); Aspartate Aminotransferase 41 U/L (13-39); BUN Creatinine Ratio 15.2 (10-20); Bilirubin,Total 0.8 mg/dl (0.2-1.0); Blood Urea Nitrogen 17 mg/dl (6-23); Carbon Dioxide 26 mmol/L (21-32); Chloride 105 mmol/L (98-107); Est GFR (African American) 75.1 ml/min; Est GFR (Non-African American) 64.8 ml/min; Glucose 106 mg/dl (70-99(Fasting)); Lipase 42 U/L (11-82); Potassium 3.1 mmol/L (3.5-5.1); Sodium 140 mmol/L (136-145)
[2021-11-30 13:58] LABS: Troponin I High Sensitivity 9.6 pg/ml (0-20)
--- NOTE | 2021-11-30 13:58 | XRay Report ---
XR chest 1V portable CLINICAL HISTORY: Chest Pain TECHNIQUE: Single frontal radiograph of the chest was obtained. Comparison: Comparison is made to chest radiograph 08/07/2019 FINDINGS: No lines and tubes are seen. The cardiomediastinal silhouette is normal. Lungs are underinflated but clear. No evidence of pleural effusion or pneumothorax. IMPRESSION: No acute chest disease. ACT 112: Negative or not required by law. Electronically signed by: Saúl Stone M.D. 11/30/2021 1:56 PM
[2021-11-30] MEDS ORDERED: OPTIRAY 320 100ml IV ONE (14:08)
--- NOTE | 2021-11-30 14:44 | CT Scan Report ---
CT abd pelvis IV con only CLINICAL HISTORY: abd pain epigastric after eating ? roel TECHNIQUE: Helical axial images of the abdomen and pelvis were obtained and displayed. Automated dose lowering techniques and/or adjustment according to patient size were utilized for this exam. This e xam was performed with intravenous contrast. CT DOSE: 1254.58 mGy.cm COMPARISON: None available at the time of this dictation. FINDINGS: Lower chest: No acute abnormality Liver: Subcentimeter hypodensities in the liver are too small to characterize. A left hepatic cyst is noted. Gallbladder and biliary tree: Cholelithiasis is seen without evidence of cholecystitis. There is dila tion of the common bile duct measuring up to 12 mm in diameter. There is suggestion of a layering sto ne in the midportion of the duct. No definite distal obstruction is seen. Pancreas: Unremarkable, no focal lesions. Spleen: Unremarkable. Adrenals: A left lipid rich adenoma is seen. Kidneys and ureters: Previously noted renal cysts are stable. Bladder: Unremarkable. Reproductive organs: Unremarkable. Bowel: Diverticulosis is seen without evidence of diverticulitis. Lymph nodes Retroperitoneal: Unremarkable. Mesenteric: Unremarkable. Pelvic: Unremarkable. Peritoneum: Normal. Vessels: Atherosclerotic calcifications are seen. Abdominal wall: Left fat containing inguinal hernia. Bones: Total right hip arthroplasty is seen. Degenerative changes are seen in the spine. IMPRESSION: Cholelithiasis without evidence of cholecystitis. There is dilation of the common bile duct to 12 mm. There is suggestion of ductal stone although no definite obstructive stone is seen. If there is clin ical concern for choledocholithiasis, MRCP can be performed. ACT 112: Negative or not required by law. Electronically signed by: Saúl Stone M.D. 11/30/2021 2:42 PM
--- NOTE | 2021-11-30 15:10 | History & Physical Report ---
Date of Service November 30, 2021 Assessment & Plan (1) Choledocholithiasis: Plan: Trend LFTs MRCP as discussed with Dr Kulkarni Consult gastroenterology and surgery - will eventually need cholecystectomy although possible this can be performed as outpatient given lack of infection No indication for antibiotics current as pain free, LFTs not significantly elevated, WBC normal and afebrile (2) HTN (hypertension): Plan: Continue amlodipine 10mg PO daily (3) Hyperlipidemia: Plan: Continue atorvastatin 20mg PO daily (4) Benign prostatic hyperplasia: Plan: Continue alfuzosin 10mg PO QPM (5) GERD (gastroesophageal reflux disease): Plan: Switch omeprazole for pantoprazole per hospital formulary Plan: VTE Prophylaxis - Lovenox 40mg SQ daily Diet - NPO Disposition - admit to med/surg Admission and Anticipated Discharge Date Admission Date: November 30, 2021 History of Present Illness Chief Complaint: Abdominal pain Primary Care Provider: Barrett Whitney DO Aldo Cota is a 71 year old male with known cholelithiasis who presents to the ER with abdominal pain. He reports epigastric pain which started when she finished breakfast at 12pm radiating to back. Severity 7/10 on arrival to the ER, 9/10 at worst, currently 2/10. No associated nausea, vomiting, diarrhea, bright red blood in stool, melena. He notes slight constipation. In the ER CT A/P concerning for choledocholithiasis with common bile duct dilatation to 1.2cm, LFT within normal limits except for AST mildly elevated 41 U/L. He was referred to medicine for admission and ongoing management of choledocholithiasis. Allergies Allergy/AdvReac Type Severity Reaction Status Date / Time Penicillins Allergy Unknown hives Verified 10/28/21 08:35 Home Medications Medication Instructions Recorded Confirmed Type amlodipine 10 mg tablet 10 mg PO QAM 08/01/19 11/30/21 History atorvastatin 20 mg tablet 20 mg PO QAM 08/01/19 11/30/21 History hydrochlorothiazide 12.5 mg tablet 12.5 mg PO QAM 08/01/19 11/30/21 History ascorbic acid (vitamin C) 1,000 mg 1 g PO QAM 12/10/20 11/30/21 History tablet cholecalciferol (vitamin D3) 50 50 mcg PO QAM 12/10/20 11/30/21 History mcg (2,000 unit) capsule aspirin 81 mg tablet,delayed 81 mg PO QPM 01/08/21 11/30/21 History release clindamycin HCl 300 mg capsule 600 mg PO ONCE #2 cap 02/19/21 11/30/21 Rx varicella-zoster glycoE [id number] 0.5 ml IM .COMPLEX #1 ea 05/27/21 11/30/21 Rx adj(PF) 50 mcg/0.5 mL IM susp, kit (Shingrix (PF)) alfuzosin 10 mg tablet,extended 10 mg PO QPM 11/30/21 11/30/21 History release 24 hr finasteride 5 mg tablet 5 mg PO QAM 11/30/21 11/30/21 History nirmatrelvir 300 mg (150 mg x See Rx Instructions PO .COMPLEX 11/30/21 11/30/21 History 2)-ritonavir 100 mg tablet (EUA) (Paxlovid 300 mg () omeprazole 20 mg capsule,delayed 20 mg PO QAM 11/30/21 11/30/21 History release Past Med/Surg History Medical History Acid reflux Well controlled and stable Back problem Chronic prostatitis Foot drop, 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 Dr. Peralta Hx of vasectomy S/P hernia surgery 1997 Family History Father Cardiac disorder Cancer Heart disease Myocardial infarction Denies family history of Ovarian cancer Prostate cancer Breast cancer Colorectal cancer Social History Smoking Status: Never smoker Second Hand Exposure: No; Hx Alcohol Use: Yes Alcohol type: hard liquor Alcohol Intake Frequency: Monthly or Less Hx Substance Use: No Preferred Language: Hungarian Communication Ability: Effective Visual Impairment: No Limitations Hearing Ability: Normal Sausage Stuffer Required: No Beliefs That Will Affect Care: None marital status: Current Living Situation: Spouse current occupational status: retired 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 How many Children do You have: 2 Other Information That Helps Us Care for You: No Feels Safe at Home: Yes Safety Concerns: Feels Safe At This Time Childhood Exposure to Second-Hand Smoke: No during the past year weight has: remained stable Dental Care, Regularly: Yes Physical Activity Frequency: Does not Exercise Seatbelt Use: always Sunscreen Use: Yes Assistive Devices: Brace/Splint/Immobilizer, Contacts and Glasses Review of Systems Review of Systems: All systems reviewed & are unremarkable except as noted in HPI & below Physical Exam Constitutional: WD/WN, vitals as above Neck: trachea midline, no thyromegaly Respiratory: normal respiratory effort, lungs clear to auscultation Cardiovascular: RRR, no murmur, no edema Gastrointestinal (Abdomen): normal bowel sounds, soft, nontender, no hepatosplenomegaly Musculoskeletal: no cyanosis or clubbing, extremities motor strength 5/5 Skin: no rashes, warm and dry Neurologic: moves all extremities and awake; not confused Psychiatric: A+Ox3, euthymic affect Genitourinary: no CVA tenderness Results & Data Results & Data ([facility]) Vital Signs (Past 12 Hours) Vital Signs Temp Pulse Pulse Resp BP BP Pulse Ox 11/30/21 15:00 59 L 13 125/79 95 11/30/21 14:30 63 13 133/82 98 11/30/21 14:00 53 L 12 115/77 91 11/30/21 13:30 58 L 12 127/81 96 11/30/21 13:07 61 14 128/88 96 11/30/21 12:56 36.6 C 65 22 136/86 96 Laboratory Results Abnormal lab results 11/30/21 11/30/21 Range/Units 13:05 13:05 Rooks # (Auto) 1.03 H (0.24-0.82) K/uL Immature Gran # (Auto) 0.03 H (0.00-0.02) K/uL Potassium 3.1 L (3.5-5.1) mmol/L Glucose 106 H (70-99(Fasting)) mg/dl AST 41 H (13-39) U/L Diagnostic Findings XR chest 1V portable CLINICAL HISTORY: Chest Pain TECHNIQUE: Single frontal radiograph of the chest was obtained. Comparison: Comparison is made to chest radiograph 08/07/2019 FINDINGS: No lines and tubes are seen. The cardiomediastinal silhouette is normal. Lungs are underinflated but clear. No evidence of pleural effusion or pneumothorax. IMPRESSION: No acute chest disease. CT abd pelvis IV con only CLINICAL HISTORY: abd pain epigastric after eating ? roel TECHNIQUE: Helical axial images of the abdomen and pelvis were obtained and displayed. Automated dose lowering techniques and/or adjustment according to patient size were utilized for this exam. This exam was performed with intravenous contrast. CT DOSE: 1254.58 mGy.cm COMPARISON: None available at the time of this dictation. FINDINGS: Lower chest: No acute abnormality Liver: Subcentimeter hypodensities in the liver are too small to characterize. A left hepatic cyst is noted. Gallbladder and biliary tree: Cholelithiasis is seen without evidence of cholecystitis. There is dilation of the common bile duct measuring up to 12 mm in diameter. There is suggestion of a layering stone in the midportion of the duct. No definite distal obstruction is seen. Pancreas: Unremarkable, no focal lesions. Spleen: Unremarkable. Adrenals: A left lipid rich adenoma is seen. Kidneys and ureters: Previously noted renal cysts are stable. Bladder: Unremarkable. Reproductive organs: Unremarkable. Bowel: Diverticulosis is seen without evidence of diverticulitis. Lymph nodes Retroperitoneal: Unremarkable. Mesenteric: Unremarkable. Pelvic: Unremarkable. Peritoneum: Normal. Vessels: Atherosclerotic calcifications are seen. Abdominal wall: Left fat containing inguinal hernia. Bones: Total right hip arthroplasty is seen. Degenerative changes are seen in the spine. IMPRESSION: Cholelithiasis without evidence of cholecystitis. There is dilation of the common bile duct to 12 mm. There is suggestion of ductal stone although no definite obstructive stone is seen. If there is clinical concern for choledocholithiasis, MRCP can be performed. Medications Administered ER Medications Given: Morphine 6mg IV Ondansetron 4mg IV ECG Indication: abdominal pain Rate (beats per minute): 61 Rhythm: normal sinus Findings: no acute ischemic change Comparison ECG Date: no prior available Code Status & VTE Plan Code Status Full VTE Prophylaxis Plan VTE Prophylaxis will be ordered: Yes PG Care Time/CCT Total # of Minutes Spent Total Time Spent with Patient: Total time spent is greater than 50% in coordination of care (as documented) at patient's floor/unit and/or counseling patient: Coding Level of Care Code 44443 Initial Inpt Care Lvl 2 Diagnoses Choledocholithiasis K80.50 HTN (hypertension) I10 Hyperlipidemia E78.5 Benign prostatic hyperplasia N40.0 GERD (gastroesophageal reflux disease) K21.9
[2021-11-30] MEDS ORDERED: POTASSIUM CHLORIDE CRTAB 20 MEQ TABCR PO STA (16:11)
[2021-11-30 16:54] LABS: Appearance Urine Clear (Clear); Bilirubin Urine Negative (Negative); Blood Urine Negative (Negative); Color Urine Yellow; Glucose Urine UA Negative (Negative); Ketones Urine Trace (Negative); Leukocyte Esterase Urine Negative (Negative); Nitrite Urine Negative (Negative); Protein Urine Negative (Negative); Specific Gravity Urine > 1.045 (1.000-1.030); Urobilinogen Urine Negative (Negative)
[2021-11-30] MEDS ORDERED: LORazepam 2 MG/1 ML VIAL IV STA (16:54)
[2021-11-30] MEDS ORDERED: ONDANSETRON INJ 2 MG/ML 2 ML VIAL IV PRN (17:42)
[2021-11-30] MEDS ORDERED: HYDROmorphone INJ 0.5 MG/0.5 ML SYR IV PRN (17:42)
--- NOTE | 2021-11-30 17:48 | Magnetic Resonance Report ---
MR MRCP CLINICAL HISTORY: choledocholithiasis TECHNIQUE: Multiplanar multisequence MR images of the abdomen were obtained, as per MRCP protocol. . COMPARISON: None available at the time of this dictation. FINDINGS: Lower chest: No acute abnormality Liver: Numerous cysts are noted in the liver. Gallbladder and biliary tree: Multiple stones are seen in the gallbladder. Common bile duct is dilate d measuring 12 mm in diameter. There is a nonobstructive filling defect in the common bile duct. No s tone is seen in the distal common bile duct. Pancreas: Numerous tiny side branch IPMN are seen. Spleen: Unremarkable. Adrenals: Unremarkable. Kidneys and ureters: Bilateral renal cysts are seen. Bowel: A hiatal hernia is seen. Lymph nodes Retroperitoneal: Unremarkable. Mesenteric: Unremarkable. Peritoneum: Normal Vessels: Unremarkable. Abdominal wall: Unremarkable. Bones: Unremarkable. IMPRESSION: 1. The common bile duct is again noted to be dilated to 12 mm. There is a stone in the mid common bi le duct which does not appear to be obstructed. Findings are nonspecific and may represent papillary stenosis, recently passed stone, or chronic functional abnormality. 2. Cholelithiasis without evidence of cholecystitis. ACT 112: Negative or not required by law. Electronically signed by: Saúl Stone M.D. 11/30/2021 5:46 PM
[2021-11-30] MEDS: HYDROmorphone INJ 0.5 MG/0.5 ML SYR IV PRN (19:09)
[2021-11-30] MEDS: LACTATED RINGER'S 1,000 ML IV SCH (19:11)
[2021-11-30] MEDS ORDERED: ACETAMINOPHEN 325 MG TAB PO PRN (21:22)
[2021-11-30] MEDS: ALFUZOSIN HCL 10 MG TAB PO SCH (21:37)
--- NOTE | 2021-11-30 21:48 | Surgery Consultation ---
Date of Consultation November 30, 2021 Assessment & Plan (1) Choledocholithiasis: (2) Cholelithiasis: Patient has been admitted on the hospitalist service. We recommend proceeding as follows: Provide analgesics Provide antiemetics Implement n.p.o. status Follow serial labs Due to finding of an MRCP a GI consultation has been requested. We will await results of this consultation. Patient may require cholecystectomy. He will be evaluated by Dr. Peralta during this admission. Timing of any surgery will be dependent on input from gastroenterology History of Present Illness Reason for Consultation: Cholelithiasis Attending Physician: Weston Zuleta MD History of Present Illness This is a 71-year-old male who presented to the emergency department at [facility] today secondary to abdominal pain. Patient says that the pain began almost immediately after eating breakfast this morning and was primarily located in the epigastric area and to a lesser degree the right upper quadrant. He notes that the pain did not radiate. He denied any palliative or provocative factors. He says he has never had this pain before. He denied any fevers, shakes, or chills. He denied any nausea, vomiting, or diarrhea. I did asked patient if he experienced any epigastric or right upper quadrant pain in the past several weeks particularly after eating which he denied. He says he does have a known history of gallstones which have been asymptomatic up to this point. He has seen Dr. Peralta of [facility] general surgery which will be described below. Patient also reports he has never had abdominal surgery other than an umbilical herniorrhaphy, which was performed by Dr. Peralta of [facility] general surgery. It is noteworthy the mention that the patient has previously been seen by Dr. Peralta for gallstones. His most recent visit with Dr. Peralta was on 08/21/2021. At that time the patient was noted to be asymptomatic and Dr. Peralta had subsequently scheduled an appointment in 3 months time. Patient notes that he missed this follow-up appointment as he developed a COVID infection. Since arrival to the hospital the patient has had labs and imaging which I independently reviewed. Chest x-ray showed no evidence of pneumonia. CT scan of the abdomen and pelvis was performed that showed cholelithiasis without evidence of cholecystitis. There was dilatation of the common bile duct noted. An MRCP was performed which showed a dilated common bile duct with concern for a gallstone in the mid portion of the common bile duct. There is also evidence of gallstones without evidence of cholecystitis. Labs include a CBC were white blood cell count, hemoglobin, hematocrit, and platelet count were all normal. Chemistry profile showed sodium was normal. His potassium was 3.1. BUN and creatinine were both normal. LFTs showed a normal total bilirubin. His ALT and alkaline phosphatase were nonelevated. There was a slight elevation of the AST at 41. Patient's lipase was nonelevated. Cardiac enzymes were not elevated. Urinalysis was not indicative of infection. A COVID test was noted to be negative. An EKG showed normal sinus rhythm without changes indicative of acute ischemia. The patient notes that he has made a full recovery from his COVID infection described above. He also notes that he leads a very active lifestyle. He says he is able to complete activities such as walking and yard work without any limitations specifically stating he does not get chest pain or shortness of breath. Denies any underlying heart conditions. At the time of my interview the patient was resting comfortably in bed. His pain had improved and he was in no distress. Allergies Allergy/AdvReac Type Severity Reaction Status Date / Time Penicillins Allergy Unknown hives Verified 10/28/21 08:35 Home Medications Medication Instructions Recorded Confirmed Type amlodipine 10 mg tablet 10 mg PO QAM 08/01/19 11/30/21 History atorvastatin 20 mg tablet 20 mg PO QAM 08/01/19 11/30/21 History hydrochlorothiazide 12.5 mg tablet 12.5 mg PO QAM 08/01/19 11/30/21 History ascorbic acid (vitamin C) 1,000 mg 1 g PO QAM 12/10/20 11/30/21 History tablet cholecalciferol (vitamin D3) 50 50 mcg PO QAM 12/10/20 11/30/21 History mcg (2,000 unit) capsule aspirin 81 mg tablet,delayed 81 mg PO QPM 01/08/21 11/30/21 History release clindamycin HCl 300 mg capsule 600 mg PO ONCE #2 cap 02/19/21 11/30/21 Rx varicella-zoster glycoE [id number] 0.5 ml IM .COMPLEX #1 ea 05/27/21 11/30/21 Rx adj(PF) 50 mcg/0.5 mL IM susp, kit (Shingrix (PF)) alfuzosin 10 mg tablet,extended 10 mg PO QPM 11/30/21 11/30/21 History release 24 hr finasteride 5 mg tablet 5 mg PO QAM 11/30/21 11/30/21 History nirmatrelvir 300 mg (150 mg x See Rx Instructions PO .COMPLEX 11/30/21 11/30/21 History 2)-ritonavir 100 mg tablet (EUA) (Paxlovid 300 mg () omeprazole 20 mg capsule,delayed 20 mg PO QAM 11/30/21 11/30/21 History release Patient History Medical History Acid reflux Well controlled and stable Back problem Chronic prostatitis Foot drop, 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 Dr. Peralta Hx of vasectomy S/P hernia surgery 1997 Family History Father Cardiac disorder Cancer Heart disease Myocardial infarction Denies family history of Ovarian cancer Prostate cancer Breast cancer Colorectal cancer Social History Smoking Status: Never smoker Second Hand Exposure: No; Hx Alcohol Use: Yes Alcohol type: hard liquor Alcohol Intake Frequency: Monthly or Less Hx Substance Use: No Preferred Language: Japanese Communication Ability: Effective Visual Impairment: No Limitations Hearing Ability: Normal Animal Control Specialist Required: No Beliefs That Will Affect Care: None marital status: Current Living Situation: Spouse current occupational status: retired 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 How many Children do You have: 2 Other Information That Helps Us Care for You: No Feels Safe at Home: Yes Safety Concerns: Feels Safe At This Time Childhood Exposure to Second-Hand Smoke: No during the past year weight has: remained stable Dental Care, Regularly: Yes Physical Activity Frequency: Does not Exercise Seatbelt Use: always Sunscreen Use: Yes Assistive Devices: Brace/Splint/Immobilizer, Contacts and Glasses Review of Systems Constitutional: no fever and no chills Eyes: no eye pain Ear, Nose, Mouth, Throat: no ear pain Respiratory: no cough and no dyspnea Cardiovascular: no chest pain Gastrointestinal: as per Subjective / HPI and + abdominal pain; no nausea and no vomiting Genitourinary: no dysuria Musculoskeletal: no back pain Integumentary: no rash Neurologic: no localized weakness Physical Exam Constitutional: WD/WN, vitals as above Eyes: + anicteric sclerae ENMT: Ears: no hearing impairment Sublingual jaundice is not noted Neck: trachea midline Respiratory: normal respiratory effort; no respiratory distress and no labored breathing Cardiovascular: Rate/Rhythm: regular rate and regular rhythm Gastrointestinal (Abdomen): Abdomen is soft, nonrigid, nondistended. There is no rebound tenderness or guarding. There is minor pain noted with palpation epigastric area as well as the right upper quadrant. Musculoskeletal: No calf tenderness Skin: no rashes Neurologic: moves all extremities Psychiatric: A+Ox3, euthymic affect Results & Data ([facility]) Vital Signs (Past 12 Hours) Vital Signs Temp Pulse Pulse Pulse Resp BP BP 11/30/21 17:43 36.6 C 65 16 11/30/21 16:00 60 15 11/30/21 15:30 59 L 13 120/83 11/30/21 15:00 59 L 13 125/79 11/30/21 14:30 63 13 133/82 11/30/21 14:00 53 L 12 115/77 11/30/21 13:30 58 L 12 127/81 11/30/21 13:07 61 14 128/88 11/30/21 12:56 36.6 C 65 22 136/86 BP Pulse Ox 11/30/21 17:43 154/83 H 95 11/30/21 16:00 95 11/30/21 15:30 93 11/30/21 15:00 95 11/30/21 14:30 98 11/30/21 14:00 91 11/30/21 13:30 96 11/30/21 13:07 96 11/30/21 12:56 96 PG Care Time/CCT Total # of Minutes Spent Total Time Spent with Patient: Total time spent is greater than 50% in coordination of care (as documented) at patient's floor/unit and/or counseling patient: Coding Level of Care Code 94123 Inpt Consult Level 5 Diagnoses Choledocholithiasis K80.50 Cholelithiasis K80.20
[2021-11-30] MEDS: ENOXAPARIN INJ 40 MG/0.4 ML SYR SQ SCH (22:08)
[2021-12-01] MEDS: LACTATED RINGER'S 1,000 ML IV SCH ×3 (02:38→21:20)
[2021-12-01 06:03] LABS: Basophils # (auto) 0.03 K/uL (0-0.2); Basophils % (auto) 0.4 %; Eosinophils # (auto) 0.11 K/uL (0-0.50); Eosinophils % (auto) 1.5 %; Hematocrit (blood only) 38.6 % (40.1-51.0); Hemoglobin 13.4 g/dl (14.0-18.0); Immature Granulocytes # (auto) 0.01 K/uL (0.00-0.02); Immature Granulocytes % (auto) 0.1 %; Lymphocytes # (auto) 1.14 K/uL (1.2-3.4); Lymphocytes % (auto) 15.5 %; Mean Corpuscular Hemoglobin 31.1 pg (25.0-34.0); Mean Corpuscular Hgb Conc 34.7 g/dL (32.0-36.0); Mean Corpuscular Volume 89.6 fL (80.0-100.0); Mean Platelet Volume 11.6 fL (9.4-12.4); Monocytes # (auto) 0.85 K/uL (0.24-0.82); Monocytes % (auto) 11.6 %; Neutrophils % (auto) 70.9 %; Platelet Count 142 K/uL (130-400); RDW Coefficient of Variation 13.1 % (11.5-14.5); RDW Standard Deviation 43.3 fL (36.4-46.3); Red Blood Count 4.31 M/uL (4.63-6.08); White Blood Count 7.34 K/ul (4.8-10.8)
[2021-12-01 06:30] LABS: Albumin Globulin Ratio 1.4 (0.9-2); Albumin Level 3.4 gm/dl (3.4-5.0); BUN Creatinine Ratio 16.1 (10-20); Bilirubin,Total 4.8 mg/dl (0.2-1.0); Calcium 8.4 mg/dl (8.5-10.1); Est GFR (African American) 99.2 ml/min; Est GFR (Non-African American) 85.6 ml/min; Globulin 2.4 gm/dl (2.5-4.0); Potassium 3.6 mmol/L (3.5-5.1); Total Protein 5.8 gm/dl (6.0-8.3)
--- NOTE | 2021-12-01 07:01 | Surgery Progress Note ---
Date of Service December 01, 2021 Assessment & Plan (1) Choledocholithiasis: Plan: Patient with multiple gallstones with decompressed gallbladder Likely has chronic cholecystitis and not acute cholecystitis Favor removal of his gallbladder during this admission with laparoscopy Possibly combined procedure with GI versus tomorrow or Wednesday- Will reassess this morning Admission and Anticipated Discharge Date Admission Date: November 30, 2021 Results & Data ([facility]) Vital Signs (Past 12 Hours) Vital Signs Temp Pulse Resp BP Pulse Ox 11/30/21 22:09 36.5 C 62 18 132/77 93 PG Care Time/CCT Total # of Minutes Spent Total Time Spent with Patient: Total time spent is greater than 50% in coordination of care (as documented) at patient's floor/unit and/or counseling patient: Coding Level of Care Code None Diagnoses Choledocholithiasis K80.50
[2021-12-01] MEDS: CHOLECALCIFEROL 1,000 UNITS 25 MCG TAB PO SCH (08:16)
[2021-12-01] MEDS: FINASTERIDE 5 MG TAB PO SCH (08:16)
[2021-12-01] MEDS: PANTOprazole 40 MG TAB PO SCH (08:16)
[2021-12-01] MEDS: ATORVASTATIN 20 MG TAB PO SCH (08:16)
[2021-12-01] MEDS: ASCORBIC ACID 500 MG TAB PO SCH (08:16)
[2021-12-01] MEDS: amLODIPine BESYLATE 5 MG TAB PO SCH (08:16)
--- NOTE | 2021-12-01 10:08 | Gastrointestinal Consultation ---
Date of Consultation December 01, 2021 Assessment & Plan (1) Choledocholithiasis: (2) Cholelithiasis: ERCP this afternoon by Dr. Álvarez. Procedure described in detail including possible complications of bleeding, infection, bile duct perforation and pancreatitis. Pt agrees to go forward with the procedure. Dr. Peralta aware and plans for surgery - likely lap choley tomorrow. Pt aware. Pt is being kept NPO and is not on any anticoagulants. Low dose ASA was held on arrival. Further recommendations to follow ERCP. Supervising Physician Co-Signing Physician Notes I performed a history and physical examination of the patient today, including specifically on physical exam - soft abdomen. I have discussed the patient's management with the advanced practitioner. Please refer to the nurse practitioner's note for the documented findings and plan of care. ERCP today Patient was explained in detail regarding risks, benefits, limitations and alternatives of the above endoscopic procedure. Risks of intravenous sedation used for procedure were also explained. Risks include, but not limited to perforation, bleeding, infection, respiratory distress, cardiac arrest and . Patient is also aware about the possibility of missed lesion. Patient's questions were answered. The patient verbalized understanding the information and agreed to undergo the procedure. History of Present Illness Reason for Consultation: choledocholithiasis Attending Physician: Julian Velazquez MD History of Present Illness Mr. Aldo Cota is a 71 yr old male pt of Dr. Efren Whitney w a hx of HTN, Hyperlipidemia, GERD, BPH who presented to the ED yesterday for abd pain. Pain is bilat, upper abd, radiating around to the back and has nearly resolved since last evening. He is awake, alert, oriented and hemodynamically stable. He denies any episodes of similar pain previously. He had sweating with the pain but no diarhea, nausea or vomiting, He noted lightly pigmented skin but no dark urine, yellow eyes or skin. CT and MRCP both w choledocholithiasis. T Bili on arrival was normal but is now 4.8. Transaminases have also increased from normal to 309 (both AST and ALT are the same). Lipase remains normal. He is afebrile, with a normal WBC count and hemodynamically stable. Allergies Allergy/AdvReac Type Severity Reaction Status Date / Time Penicillins Allergy Unknown hives Verified 10/28/21 08:35 Home Medications Medication Instructions Recorded Confirmed Type amlodipine 10 mg tablet 10 mg PO QAM 08/01/19 11/30/21 History atorvastatin 20 mg tablet 20 mg PO QAM 08/01/19 11/30/21 History hydrochlorothiazide 12.5 mg tablet 12.5 mg PO QAM 08/01/19 11/30/21 History ascorbic acid (vitamin C) 1,000 mg 1 g PO QAM 12/10/20 11/30/21 History tablet cholecalciferol (vitamin D3) 50 50 mcg PO QAM 12/10/20 11/30/21 History mcg (2,000 unit) capsule aspirin 81 mg tablet,delayed 81 mg PO QPM 01/08/21 11/30/21 History release clindamycin HCl 300 mg capsule 600 mg PO ONCE #2 cap 02/19/21 11/30/21 Rx varicella-zoster glycoE [id number] 0.5 ml IM .COMPLEX #1 ea 05/27/21 11/30/21 Rx adj(PF) 50 mcg/0.5 mL IM susp, kit (Shingrix (PF)) alfuzosin 10 mg tablet,extended 10 mg PO QPM 11/30/21 11/30/21 History release 24 hr finasteride 5 mg tablet 5 mg PO QAM 11/30/21 11/30/21 History nirmatrelvir 300 mg (150 mg x See Rx Instructions PO .COMPLEX 11/30/21 11/30/21 History 2)-ritonavir 100 mg tablet (EUA) (Paxlovid 300 mg () omeprazole 20 mg capsule,delayed 20 mg PO QAM 11/30/21 11/30/21 History release Patient History Medical History Acid reflux Well controlled and stable Back problem Chronic prostatitis Foot drop, 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 Dr. Peralta Hx of vasectomy S/P hernia surgery 1997 Family History Father Cardiac disorder Cancer Heart disease Myocardial infarction Denies family history of Ovarian cancer Prostate cancer Breast cancer Colorectal cancer Social History Smoking Status: Never smoker Second Hand Exposure: No; Hx Alcohol Use: Yes Alcohol type: hard liquor Alcohol Intake Frequency: Monthly or Less Hx Substance Use: No Preferred Language: Uzbek Communication Ability: Effective Visual Impairment: No Limitations Hearing Ability: Normal Studio Data Analyst Required: No Beliefs That Will Affect Care: None marital status: Current Living Situation: Spouse current occupational status: retired 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 How many Children do You have: 2 Other Information That Helps Us Care for You: No Feels Safe at Home: Yes Safety Concerns: Feels Safe At This Time Childhood Exposure to Second-Hand Smoke: No during the past year weight has: remained stable Dental Care, Regularly: Yes Physical Activity Frequency: Does not Exercise Seatbelt Use: always Sunscreen Use: Yes Assistive Devices: None Review of Systems Review of Systems: ROS: Gen: + sweats; Denies weakness, fevers, weight loss Eyes: No eye redness, or pain, no recent vision changes Resp: No SOB, no cough Cardio: No palpitations/irregular beats, no chest pain GI: As per HPI, otherwise (-) : Denies pain on urination, no dark urine Skin: No jaundice, itching or new rashes Physical Exam Constitutional: well developed and cooperative Eyes: PERRL, conjunctivae normal, anicteric sclerae ENMT: external ear and nose normal, oropharynx normal Neck: trachea midline, no thyromegaly Respiratory: normal respiratory effort, lungs clear to auscultation Cardiovascular: RRR, no murmur, no edema Gastrointestinal (Abdomen): Inspection/Auscultation: abdomen normal to inspection, normal bowel sounds and + hypoactive bowel sounds; abdomen not distended and no abdominal edema Percussion/Palpation: abdomen soft; abdomen nontender Skin: no rashes, warm and dry normal turgor Neurologic: PERRL, EOMI, accommodation nl, no face palsy, no dysarthria awake; not confused Psychiatric: A+Ox3, euthymic affect Results & Data ([facility]) Vital Signs (Past 12 Hours) Vital Signs Temp Pulse Resp BP BP Pulse Ox 12/01/21 07:42 36.8 C 70 17 148/83 H 93 11/30/21 22:09 36.5 C 62 18 132/77 93 Laboratory Results WBC 7.3, Hb 13.4, Hct 38.6, Plts 142, Na 139, K 3.6, Cl 106, CO2 27, BUN 14, Cr 0.87, glucose 110. T Bili 4.8, AST 309, ALT 309, Alk Phos 93, Lipase 42. Diagnostic Findings MRCP 11/30: 1. The common bile duct is again noted to be dilated to 12 mm. There is a stone in the mid common bile duct which does not appear to be obstructed. Findings are nonspecific and may represent papillary stenosis, recently passed stone, or chronic functional abnormality. 2. Cholelithiasis without evidence of cholecystitis. CTAP 11/30: Cholelithiasis without evidence of cholecystitis. There is dilation of the common bile duct to 12 mm. There is suggestion of ductal stone although no definite obstructive stone is seen. If there is clinical concern for roel docholithiasis, MRCP can be performed.
--- NOTE | 2021-12-01 11:53 | Hospitalist Progress Note ---
Date of Service December 01, 2021 Assessment & Plan (1) Choledocholithiasis: Plan: Choledocholithiasis without cholecystitis MRCP with nonobstructing CBD stone, ductal dilation, multiple gallbladder stones no evidence of acute cholecystitis Patient with abdominal pain which improved last night Bilirubin and LFTs uptrending this morning Gastroenterology consulted for ERCP Surgery consulted for for lap roel, following with GI Continue to trend LFTs Remains hemodynamically stable N.p.o., LR 125 while n.p.o. (2) HTN (hypertension): Plan: Continue amlodipine 10mg PO daily (3) Hyperlipidemia: Plan: Continue atorvastatin 20mg PO daily (4) Benign prostatic hyperplasia: Plan: Continue alfuzosin 10mg PO QPM (5) GERD (gastroesophageal reflux disease): Plan: Switch omeprazole for pantoprazole per hospital formulary Plan: VTE Prophylaxis - Lovenox 40mg SQ daily Diet - NPO Disposition - admit to med/surg Admission and Anticipated Discharge Date Admission Date: November 30, 2021 Subjective Seen at bedside this morning. His abdominal pain has nearly completely moved overnight, is no longer tender at the right upper quadrant/epigastrium. Is awaiting ERCP. Denies chest pain, chest pressure, lightheadedness, dizziness, nausea, vomiting, diarrhea this morning. Review of Systems Review of Systems: All systems reviewed & are unremarkable except as noted in Subjective Physical Exam Physical Exam: General: A&Ox3. NAD. Cooperative. HEENT: Atraumatic, normocephalic. Pulm: CTAB A&P. -wheezes, -rales, -rhonchi. Symmetrical chest rise. No increase in work of breathing. No respiratory distress. Cardiac: RRR, -mrg. Radial pulses intact and symmetrical. Abdominal: Nontender, nondistended, soft. BS present. No rebound. Lewis's not present Results & Data Results & Data ([facility]) Vital Signs (Past 12 Hours) Vital Signs Temp Pulse Resp BP Pulse Ox 12/01/21 07:42 36.8 C 70 17 148/83 H 93 PG Care Time/CCT Total # of Minutes Spent Total Time Spent with Patient: Total time spent is greater than 50% in coordination of care (as documented) at patient's floor/unit and/or counseling patient: Coding Level of Care Code 47211 Subseq Hosp Care Lvl 2 Diagnoses Choledocholithiasis K80.50 HTN (hypertension) I10 Hyperlipidemia E78.5 Benign prostatic hyperplasia N40.0 GERD (gastroesophageal reflux disease) K21.9
--- NOTE | 2021-12-01 12:52 | Electrocardiogram Report ---
Test Reason : Blood Pressure : / mmHG Vent. Rate : 061 BPM Atrial Rate : 061 BPM P-R Int : 188 ms QRS Dur : 090 ms QT Int : 446 ms P-R-T Axes : 013 -08 033 degrees QTc Int : 448 ms Normal sinus rhythm Normal ECG When compared with ECG of 10-DEC-2020 14:04, No significant change was found Confirmed by Leland Moran ([id number]) on 12/01/2021 12:51:41 PM Referred By: Confirmed By:Jack Moran
--- NOTE | 2021-12-01 13:05 | Anesthesiology Consultation ---
Date of Service December 01, 2021 Assessment & Plan (1) Encounter for pre-operative examination: Chart Review Chart Review: Acceptable Risk for Surgery and Patient NOT seen in Pre Admission Testing Consults Requested none History Surgery Operation Date: 12/01/21 07:50 Proposed Procedures p Endoscopic Retrograde Cholangiopancreato - Eliecer Álvarez MD Operation Date: 12/02/21 10:20 Proposed Procedures p Laparoscopic Cholecystectomy - Fran Peralta MD, FACS Height/Weight Height: 5 ft 11 in Weight: 113.7 kg Allergies Allergy/AdvReac Type Severity Reaction Status Date / Time Penicillins Allergy Unknown hives Verified 10/28/21 08:35 Medications Home Medications Medication Instructions Recorded Confirmed Last Taken amlodipine 10 mg tablet 10 mg PO QAM 08/01/19 11/30/21 1 Day Ago ~11/29/21 atorvastatin 20 mg tablet 20 mg PO QAM 08/01/19 11/30/21 11/30/21 hydrochlorothiazide 12.5 mg tablet 12.5 mg PO QAM 08/01/19 11/30/21 11/30/21 ascorbic acid (vitamin C) 1,000 mg 1 g PO QAM 12/10/20 11/30/21 1 Day Ago tablet ~11/29/21 cholecalciferol (vitamin D3) 50 50 mcg PO QAM 12/10/20 11/30/21 11/30/21 mcg (2,000 unit) capsule aspirin 81 mg tablet,delayed 81 mg PO QPM 01/08/21 11/30/21 1 Day Ago release ~11/29/21 clindamycin HCl 300 mg capsule 600 mg PO ONCE #2 cap 02/19/21 11/30/21 07/31/21 varicella-zoster glycoE [id number] 0.5 ml IM .COMPLEX #1 ea 05/27/21 11/30/21 09/30/21 adj(PF) 50 mcg/0.5 mL IM susp, kit (Shingrix (PF)) alfuzosin 10 mg tablet,extended 10 mg PO QPM 11/30/21 11/30/21 1 Day Ago release 24 hr ~11/29/21 finasteride 5 mg tablet 5 mg PO QAM 11/30/21 11/30/21 11/30/21 nirmatrelvir 300 mg (150 mg x See Rx Instructions PO .COMPLEX 11/30/21 11/30/21 11/18/21 2)-ritonavir 100 mg tablet (EUA) (Paxlovid 300 mg () omeprazole 20 mg capsule,delayed 20 mg PO QAM 11/30/21 11/30/21 11/30/21 release Active Medications Generic Name Dose Route Start Last Admin Trade Name Freq PRN Reason Stop Dose Admin Alfuzosin HCl 10 mg 11/30/21 21:00 11/30/21 21:37 Alfuzosin Hcl 10 Mg Tab PO 12/30/21 20:59 10 mg QPM BHARTI Administration Amlodipine Besylate 10 mg 12/01/21 09:00 12/01/21 08:16 Amlodipine Besylate 5 Mg Tab PO 12/31/21 08:59 10 mg QAM BHARTI Administration Ascorbic Acid 1,000 mg 12/01/21 09:00 12/01/21 08:16 Ascorbic Acid 500 Mg Tab PO 12/31/21 08:59 1,000 mg QAM BHARTI Administration Atorvastatin Calcium 20 mg 12/01/21 09:00 12/01/21 08:16 Atorvastatin 20 Mg Tab PO 12/31/21 08:59 20 mg QAM BHARTI Administration Enoxaparin Sodium 40 mg 11/30/21 21:30 11/30/21 22:08 Enoxaparin Inj 40 Mg/0.4 Ml Syr SQ 12/30/21 21:29 40 mg QPM BHARTI Administration Finasteride 5 mg 12/01/21 09:00 12/01/21 08:16 Finasteride 5 Mg Tab PO 12/31/21 08:59 5 mg QAM BHARTI Administration Hydromorphone HCl 0.5 mg 11/30/21 17:42 11/30/21 19:09 Hydromorphone Inj 0.5 Mg/0.5 Ml Syr IV 12/14/21 17:41 0.5 mg Q3H PRN Administration Pain (6,7,8,9,10) Lactated Ringer's 1,000 mls @ 125 mls/hr 11/30/21 18:30 12/01/21 11:01 Lr IV 12/30/21 18:29 125 mls/hr .Q8H BHARTI Administration Pantoprazole Sodium 40 mg 12/01/21 09:00 12/01/21 08:16 Pantoprazole 40 Mg Tab PO 12/31/21 08:59 40 mg QAM BHARTI Administration Vitamin D 2,000 units 12/01/21 09:00 12/01/21 08:16 Cholecalciferol 1,000 Units 25 Mcg Tab PO 12/31/21 08:59 2,000 units QAM BHARTI Administration Past Medical History Medical History Acid reflux Well controlled and stable Back problem Chronic prostatitis Foot drop, 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- wears brace Hiatal hernia History of kidney stones X1/PASSED ON OWN Hypertension Nephrolithiasis Past Family History Family History Father Cardiac disorder Cancer Heart disease Myocardial infarction Denies family history of Ovarian cancer Prostate cancer Breast cancer Colorectal cancer Past Surgical History Surgical History H/O wrist surgery 1976 History of ankle surgery R 1965 History of colonoscopy History of lumbar surgery X2 (NO HARDWARE) 1990 and 2002 History of rectal surgery History of right hip replacement (~10/2019) History of umbilical hernia repair (01/14/21) Umbilical hernia repair. Dr. Peralta Hx of vasectomy S/P hernia surgery 1997 Social History Smoking Status: Never smoker Hx Alcohol Use: Yes Alcohol type: hard liquor alcohol intake frequency: holidays/special occasions only Hx Substance Use: No substance use type: does not use Physical Exam Vital Signs Last Vital Signs Temp 98.2 F 12/01/21 07:42 Pulse 70 12/01/21 07:42 Resp 17 12/01/21 07:42 BP 148/83 H 12/01/21 07:42 Pulse Ox 93 12/01/21 07:42 Testing Laboratory Results 12/01/21 05:46 12/01/21 05:46 Urine Color Yellow 11/30/21 16:39 Urine Appearance Clear (Clear) 11/30/21 16:39 Urine pH 6.0 (4.5-7.5) 11/30/21 16:39 Ur Specific [place] > 1.045 (1.000-1.030) H 11/30/21 16:39 Urine Protein Negative (Negative) 11/30/21 16:39 Urine Glucose (UA) Negative (Negative) 11/30/21 16:39 Urine Ketones Trace (Negative) H 11/30/21 16:39 Urine Nitrite Negative (Negative) 11/30/21 16:39 Ur Leukocyte Esterase Negative (Negative) 11/30/21 16:39 Electrocardiogram Date: 11/30/21 Findings: + NSR @
[2021-12-01] MEDS ORDERED: DEXAMETHASONE SOD INJ 4 MG/ML VIAL ONE ×2 (14:31→15:59)
[2021-12-01] MEDS ORDERED: PROPOFOL IV EMULSION 10 MG/ML 20 ML VIAL IV ONE (14:31)
[2021-12-01] MEDS ORDERED: ONDANSETRON INJ 2 MG/ML 2 ML VIAL ONE (14:31)
[2021-12-01] MEDS ORDERED: fentaNYL citrate 100 MCG/2 ML VIAL ONE (14:31)
[2021-12-01] MEDS ORDERED: LIDOCAINE 2% MPF LOCAL 5 ML VIAL INFIL ONE (14:32)
[2021-12-01] MEDS ORDERED: ROCURONIUM BROMIDE 10 MG/ML 5 ML VIAL IV ONE ×5 (14:32)
[2021-12-01] MEDS ORDERED: CIPROFLOXACIN / D5W 400 MG/200 ML BAG IV STA (15:13)
--- NOTE | 2021-12-01 15:13 | History & Physical Bridge Note ---
Date of Service December 01, 2021 History & Physical Bridge Note I have examined the patient, reviewed the History & Physical and in the interval since the performance of the History & Physical I have noted the following changes of clinical significance: no changes noted
[2021-12-01] MEDS ORDERED: CIPROFLOXACIN 400MG / 200ML D5W IV ONE (15:14)
[2021-12-01] MEDS ORDERED: INDOMETHACIN 50 MG SUPP PR ONE (15:14)
[2021-12-01] MEDS ORDERED: ePHEDrine sulfate 50 MG/ML AMP IV PRN (15:15)
[2021-12-01] MEDS ORDERED: fentaNYL citrate 100 MCG/2 ML VIAL IV PRN (15:15)
[2021-12-01] MEDS ORDERED: ATROPINE SULFATE 0.1 MG/ML 10ML SYR IV PRN (15:15)
[2021-12-01] MEDS ORDERED: ONDANSETRON INJ 2 MG/ML 2 ML VIAL IV PRN (15:15)
[2021-12-01] MEDS ORDERED: NEOSTIGMINE METHYLSULFATE 1 MG/ML 10ML VIAL ONE (16:00)
[2021-12-01] MEDS ORDERED: GLYCOPYRROLATE 0.2 MG/ML VIAL ONE ×2 (16:00→16:01)
--- NOTE | 2021-12-01 16:06 | Operative Report ---
Post Operative Report Pre & Post Diagnosis Operation Date: 12/01/21 07:50 Pre-Op Diagnosis: choledocholithisis Post-Op Diagnosis: choledocholithisis Operation Date: 12/02/21 10:20 <No data on this case meets the specified criteria> I identified the patient and participated in the time-out.: Yes Procedure Operation Date: 12/01/21 07:50 Actual Procedures p Endoscopic Retrograde Cholangiopancreatography, sphincterotomy, biliary stent(Not Applicable) - Eliecer Álvarez MD Operation Date: 12/02/21 10:20 <No data on this case meets the specified criteria> Surgeon Eliecer Álvarez MD Plant And Maintenance Technician None Estimated Blood Loss 0 Findings See Below (Choledocholithiasis removed, stent placed) Specimens None Description of Procedure ERCP I attest to the content of the Intraoperative Record and any orders documented therein. Any exceptions are noted below.
[2021-12-01] MEDS ORDERED: METOPROLOL TARTRATE 1 MG/ML VIAL IV ONE (16:09)
--- NOTE | 2021-12-01 16:21 | Fluoroscopy Report ---
INTRAOPERATIVE RADIOGRAPHS CLINICAL HISTORY: ERCP. Fluoroscopy time: 40 seconds. FINDINGS: 11 spot fluoroscopic views of the right upper quadrant from an ERCP procedure are correlate d with MRCP and abdominal CT dated 11/30/2021. The initial image shows the endoscope projecting over t he stomach with a catheter in the common bile duct. Contrast injected into the common bile duct shows extrahepatic biliary ductal dilatation. A filling defects suggest choledocholithiasis. A balloon swe ep of the common duct is performed. The filling defect has resolved on the final images. A common lulu e duct stent is placed. IMPRESSION: Intraoperative ERCP images as above. Electronically signed by: Yo Mendiola M.D. 12/01/2021 4:19 PM
--- NOTE | 2021-12-01 16:23 | GI REPORT ---
Patient Name: Aldo Cota Procedure Date: 12/01/2021 3:34 PM Date of : 1950 Admit Type: Inpatient Age: 71 Gender: Male Attending MD: Eliecer Álvarez MD Procedure: ERCP Providers: Eliecer Álvarez MD Referring MD: Julian Velazquez Md, Fran Peralta Indications: Bile duct stone on magnetic resonance cholangiopancreatography, For therapy of bile duct stone(s) Medicines: General Anesthesia, Cipro 400 mg IV Complications: No immediate complications. Estimated Blood Loss: Estimated blood loss: none. Procedure: Pre-Anesthesia Assessment: - Prior to the procedure, a History and Physical was performed, and patient medications, allergies and sensitivities were reviewed. The patient's tolerance of previous anesthesia was reviewed. - The risks and benefits of the procedure and the sedation options and risks were discussed with the patient. All questions were answered and informed consent was obtained. - Patient identification and proposed procedure were verified prior to the procedure by the physician and the nurse. The procedure was verified in the procedure room. - Pre-procedure physical examination revealed no contraindications to sedation. After obtaining informed consent, the scope was passed under direct vision. Throughout the procedure, the patient's blood pressure, pulse, and oxygen saturations were monitored continuously. The Duodenoscope was introduced through the mouth, and advanced to the duodenum and used to inject contrast into the bile duct. The ERCP was accomplished without difficulty. The patient tolerated the procedure well. Findings: The shirring tender film was normal. The esophagus was successfully intubated under direct vision. The scope was advanced to a normal major papilla in the descending duodenum without detailed examination of the pharynx, larynx and associated structures, and upper GI tract. The upper GI tract was grossly normal. A 0.035 inch straight standard wire was passed into the biliary tree. The Fusion OMNI sphincterotome was passed over the guidewire and the bile duct was then deeply cannulated. Contrast was injected. I personally interpreted the bile duct images. Ductal flow of contrast was adequate. Image quality was adequate. Contrast extended to the main bile duct. Opacification of the main bile duct was successful. The maximum diameter of the ducts was 12 mm. Biliary sphincterotomy was made with a monofilament traction (standard) sphincterotome using ERBE electrocautery. There was no post-sphincterotomy bleeding. The biliary tree was swept with a 12 mm balloon starting at the bifurcation. Sludge was swept from the duct. Many stones were removed. No stones remained. One 10 Fr by 8 cm plastic biliary stent with a single external flap and a single internal flap was placed into the common bile duct. Bile flowed through the stent. The stent was in good position. Indomethacin 100 mg was given via suppository to decrease the risk of post-ERCP pancreatitis (PEP). Impression: - Choledocholithiasis was found. Complete removal was accomplished by biliary sphincterotomy and balloon extraction. - One plastic biliary stent was placed into the common bile duct. Recommendation: - Return patient to [facility] for ongoing care. - Repeat ERCP in 8 weeks to remove stent. - Procced with cholecystectomy. Eliecer Álvarez MD 12/01/2021 4:22:56 PM This report has been signed electronically. Note Initiated On: 12/01/2021 3:34 PM Number of Addenda: 0 I attest to the content of the Intraoperative Record and orders documented therein, exceptions below {[id number]}
--- NOTE | 2021-12-01 17:21 | Anesthesiology Progress Note ---
Date of Service December 01, 2021 Anesthesia Post Procedure Vital Signs Vital Signs: Temp Pulse Pulse Pulse Resp BP BP 12/01/21 16:45 36.5 C 67 14 107/80 12/01/21 16:35 67 14 124/86 12/01/21 16:26 36.6 C 73 14 107/80 12/01/21 15:00 37.4 C 72 19 148/92 H 12/01/21 07:42 36.8 C 70 17 148/83 H 11/30/21 22:09 36.5 C 62 18 132/77 11/30/21 17:43 36.6 C 65 16 154/83 H Pulse Ox 12/01/21 16:45 93 12/01/21 16:35 92 12/01/21 16:26 92 12/01/21 15:00 95 12/01/21 07:42 93 11/30/21 22:09 93 11/30/21 17:43 95 Pain Intensity Chest: Pain Intensity: 2 Abdomen: Pain Intensity: 1 Transfer of Care Handoff Completed per policy Notes Mental Status: alert / awake / arousable Patient Amnestic to Procedure: Yes Nausea / Vomiting: adequately controlled Pain: adequately controlled Airway Patency, RR, SpO2: stable & adequate BP & HR: stable & adequate Hydration State: stable & adequate Anesthetic Complications: no major complications apparent and Pt Satisfied with anesthetic care Notes: The patient was cared for by Dr. Jacobs and he was signed out to me after he was in PACU. The patient was noted to have some bile in the back of his throat upon extubation by the BUSINESS ARCHITECT. Dr. Jacobs did not think that the patient aspirated but could not be certain. The patient did well in PACU with no cough. The patient states that he feels fine with no trouble breathing. His SpO2 is now 92 on room air. His lungs are clear to auscultation. I spoke to the patient as well as Dr. Velazquez about the possibility that the patient aspirated. Dr. Velazquez will monitor the patient for any signs or symptoms of aspiration pneumonia. The patient was placed on continuous pulse oximetry.
--- NOTE | 2021-12-01 17:50 | Anesthesiology Consultation ---
Date of Service December 01, 2021 The patient underwent an ERCP today. There was some concern that he may have aspirated bile upon extubation. However, his lungs have been clear to auscultation and the patient feels well. SpO2 is being monitored and he is in the mid 90s on [address] Land was made aware. Assessment & Plan (1) Encounter for pre-operative examination: Chart Review Chart Review: Acceptable Risk for Surgery and Patient NOT seen in Pre Admission Testing Consults Requested none History Surgery Operation Date: 12/01/21 07:50 Proposed Procedures p Endoscopic Retrograde Cholangiopancreato - Eliecer Álvarez MD Operation Date: 12/02/21 10:20 Proposed Procedures p Laparoscopic Cholecystectomy - Fran Peralta MD, FACS Height/Weight Height: 5 ft 11 in Weight: 113.7 kg Allergies Allergy/AdvReac Type Severity Reaction Status Date / Time Penicillins Allergy Unknown hives Verified 10/28/21 08:35 Medications Home Medications Medication Instructions Recorded Confirmed Last Taken amlodipine 10 mg tablet 10 mg PO QAM 08/01/19 11/30/21 1 Day Ago ~11/29/21 atorvastatin 20 mg tablet 20 mg PO QAM 08/01/19 11/30/21 11/30/21 hydrochlorothiazide 12.5 mg tablet 12.5 mg PO QAM 08/01/19 11/30/21 11/30/21 ascorbic acid (vitamin C) 1,000 mg 1 g PO QAM 12/10/20 11/30/21 1 Day Ago tablet ~11/29/21 cholecalciferol (vitamin D3) 50 50 mcg PO QAM 12/10/20 11/30/21 11/30/21 mcg (2,000 unit) capsule aspirin 81 mg tablet,delayed 81 mg PO QPM 01/08/21 11/30/21 1 Day Ago release ~11/29/21 clindamycin HCl 300 mg capsule 600 mg PO ONCE #2 cap 02/19/21 11/30/21 07/31/21 varicella-zoster glycoE [id number] 0.5 ml IM .COMPLEX #1 ea 05/27/21 11/30/21 09/30/21 adj(PF) 50 mcg/0.5 mL IM susp, kit (Shingrix (PF)) alfuzosin 10 mg tablet,extended 10 mg PO QPM 11/30/21 11/30/21 1 Day Ago release 24 hr ~11/29/21 finasteride 5 mg tablet 5 mg PO QAM 11/30/21 11/30/21 11/30/21 nirmatrelvir 300 mg (150 mg x See Rx Instructions PO .COMPLEX 11/30/21 11/30/21 11/18/21 2)-ritonavir 100 mg tablet (EUA) (Paxlovid 300 mg () omeprazole 20 mg capsule,delayed 20 mg PO QAM 11/30/21 11/30/21 11/30/21 release Active Medications Generic Name Dose Route Start Last Admin Trade Name Freq PRN Reason Stop Dose Admin Alfuzosin HCl 10 mg 11/30/21 21:00 11/30/21 21:37 Alfuzosin Hcl 10 Mg Tab PO 12/30/21 20:59 10 mg QPM BHARTI Administration Amlodipine Besylate 10 mg 12/01/21 09:00 12/01/21 08:16 Amlodipine Besylate 5 Mg Tab PO 12/31/21 08:59 10 mg QAM BHARTI Administration Ascorbic Acid 1,000 mg 12/01/21 09:00 12/01/21 08:16 Ascorbic Acid 500 Mg Tab PO 12/31/21 08:59 1,000 mg QAM BHARTI Administration Atorvastatin Calcium 20 mg 12/01/21 09:00 12/01/21 08:16 Atorvastatin 20 Mg Tab PO 12/31/21 08:59 20 mg QAM BHARTI Administration Enoxaparin Sodium 40 mg 11/30/21 21:30 11/30/21 22:08 Enoxaparin Inj 40 Mg/0.4 Ml Syr SQ 12/30/21 21:29 40 mg QPM BHARTI Administration Finasteride 5 mg 12/01/21 09:00 12/01/21 08:16 Finasteride 5 Mg Tab PO 12/31/21 08:59 5 mg QAM BHARTI Administration Hydromorphone HCl 0.5 mg 11/30/21 17:42 11/30/21 19:09 Hydromorphone Inj 0.5 Mg/0.5 Ml Syr IV 12/14/21 17:41 0.5 mg Q3H PRN Administration Pain (6,7,8,9,10) Lactated Ringer's 1,000 mls @ 125 mls/hr 11/30/21 18:30 12/01/21 11:01 Lr IV 12/30/21 18:29 125 mls/hr .Q8H BHARTI Administration Pantoprazole Sodium 40 mg 12/01/21 09:00 12/01/21 08:16 Pantoprazole 40 Mg Tab PO 12/31/21 08:59 40 mg QAM BHARTI Administration Vitamin D 2,000 units 12/01/21 09:00 12/01/21 08:16 Cholecalciferol 1,000 Units 25 Mcg Tab PO 12/31/21 08:59 2,000 units QAM BHARTI Administration NPO Date Last Intake of Fluids: 11/30/21 Time Last Intake of Fluids: 12:00 Date Last Intake of Solids: 11/30/21 Time Last Intake of Solids: 12:00 Past Medical History Medical History Acid reflux Well controlled and stable Back problem Chronic prostatitis Foot drop, 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- wears brace Hiatal hernia History of kidney stones X1/PASSED ON OWN Hypertension Nephrolithiasis Past Family History Family History Father Cardiac disorder Cancer Heart disease Myocardial infarction Denies family history of Ovarian cancer Prostate cancer Breast cancer Colorectal cancer Past Surgical History Surgical History H/O wrist surgery 1976 History of ankle surgery R 1965 History of colonoscopy History of lumbar surgery X2 (NO HARDWARE) 1990 and 2002 History of rectal surgery History of right hip replacement (~10/2019) History of umbilical hernia repair (01/14/21) Umbilical hernia repair. Dr. Peralta Hx of vasectomy S/P hernia surgery 1998 Social History Smoking Status: Never smoker Hx Alcohol Use: Yes Alcohol type: hard liquor alcohol intake frequency: holidays/special occasions only Hx Substance Use: No substance use type: does not use Physical Exam Vital Signs Last Vital Signs Temp 36.8 C 12/01/21 17:30 Pulse 56 L 12/01/21 17:30 Resp 16 12/01/21 17:30 BP 126/75 12/01/21 17:30 Pulse Ox 94 12/01/21 17:30 Testing Laboratory Results 12/01/21 05:46 12/01/21 05:46 Urine Color Yellow 11/30/21 16:39 Urine Appearance Clear (Clear) 11/30/21 16:39 Urine pH 6.0 (4.5-7.5) 11/30/21 16:39 Ur Specific [place] > 1.045 (1.000-1.030) H 11/30/21 16:39 Urine Protein Negative (Negative) 11/30/21 16:39 Urine Glucose (UA) Negative (Negative) 11/30/21 16:39 Urine Ketones Trace (Negative) H 11/30/21 16:39 Urine Nitrite Negative (Negative) 11/30/21 16:39 Ur Leukocyte Esterase Negative (Negative) 11/30/21 16:39 Electrocardiogram Date: 11/30/21 Findings: + NSR @
[2021-12-01] MEDS: ENOXAPARIN INJ 40 MG/0.4 ML SYR SQ SCH (21:20)
[2021-12-01] MEDS: ALFUZOSIN HCL 10 MG TAB PO SCH (21:22)
[2021-12-02] MEDS: LACTATED RINGER'S 1,000 ML IV SCH ×2 (04:59→16:45)
[2021-12-02] MEDS ORDERED: CIPROFLOXACIN / D5W 400 MG/200 ML BAG IV SCH (06:00)
--- NOTE | 2021-12-02 06:51 | History & Physical Bridge Note ---
Date of Service December 02, 2021 History & Physical Bridge Note I have examined the patient, reviewed the History & Physical and in the interval since the performance of the History & Physical I have noted the following changes of clinical significance: no changes noted
[2021-12-02] MEDS: ATORVASTATIN 20 MG TAB PO SCH (07:31)
[2021-12-02] MEDS: CHOLECALCIFEROL 1,000 UNITS 25 MCG TAB PO SCH (07:31)
[2021-12-02] MEDS: PANTOprazole 40 MG TAB PO SCH (07:31)
[2021-12-02] MEDS: ASCORBIC ACID 500 MG TAB PO SCH (07:32)
[2021-12-02] MEDS: FINASTERIDE 5 MG TAB PO SCH (07:32)
[2021-12-02 08:55] LABS: Albumin Globulin Ratio 1.3 (0.9-2); Albumin Level 3.3 gm/dl (3.4-5.0); BUN Creatinine Ratio 12.2 (10-20); Bilirubin,Total 1.5 mg/dl (0.2-1.0); Calcium 8.5 mg/dl (8.5-10.1); Creatinine Clr Calc Pharmacy 93.7 ml/min; Est GFR (African American) 97.9 ml/min; Est GFR (Non-African American) 84.4 ml/min; Globulin 2.6 gm/dl (2.5-4.0); Potassium 3.8 mmol/L (3.5-5.1); Total Protein 5.9 gm/dl (6.0-8.3)
[2021-12-02] MEDS ORDERED: NEOSTIGMINE METHYLSULFATE 1 MG/ML 10ML VIAL ONE (09:24)
[2021-12-02] MEDS ORDERED: DEXAMETHASONE SOD INJ 4 MG/ML VIAL ONE (09:24)
[2021-12-02] MEDS ORDERED: fentaNYL citrate 100 MCG/2 ML VIAL ONE (09:24)
[2021-12-02] MEDS ORDERED: ONDANSETRON INJ 2 MG/ML 2 ML VIAL ONE (09:24)
[2021-12-02] MEDS ORDERED: GLYCOPYRROLATE 0.2 MG/ML VIAL ONE (09:24)
[2021-12-02] MEDS ORDERED: PROPOFOL IV EMULSION 10 MG/ML 20 ML VIAL IV ONE (09:24)
[2021-12-02] MEDS ORDERED: SUGAMMADEX SODIUM 200 MG/2 ML VIAL IV ONE (09:27)
[2021-12-02] MEDS ORDERED: ACETAMINOPHEN 1000 MG/100 ML IV IV ONE (09:28)
[2021-12-02] MEDS ORDERED: ONDANSETRON INJ 2 MG/ML 2 ML VIAL IV PRN ×2 (09:47→12:06)
[2021-12-02] MEDS ORDERED: ATROPINE SULFATE 0.1 MG/ML 10ML SYR IV PRN (09:47)
[2021-12-02] MEDS ORDERED: ePHEDrine sulfate 50 MG/ML AMP IV PRN (09:47)
[2021-12-02] MEDS ORDERED: fentaNYL citrate 100 MCG/2 ML VIAL IV PRN (09:47)
[2021-12-02] MEDS ORDERED: CIPROFLOXACIN 400MG / 200ML D5W IV ONE (09:51)
[2021-12-02] MEDS ORDERED: BUPIVACAINE 0.5 % 5 MG/1 ML MPF 30ML VIAL ONE (10:00)
[2021-12-02 10:11] LABS: Basophils # (auto) 0.05 K/uL (0-0.2); Basophils % (auto) 0.8 %; Eosinophils # (auto) 0.21 K/uL (0-0.50); Eosinophils % (auto) 3.3 %; Hematocrit (blood only) 39.1 % (40.1-51.0); Hemoglobin 13.2 g/dl (14.0-18.0); Immature Granulocytes # (auto) 0.02 K/uL (0.00-0.02); Immature Granulocytes % (auto) 0.3 %; Lymphocytes # (auto) 1.32 K/uL (1.2-3.4); Lymphocytes % (auto) 20.9 %; Mean Corpuscular Hemoglobin 30.9 pg (25.0-34.0); Mean Corpuscular Hgb Conc 33.8 g/dL (32.0-36.0); Mean Corpuscular Volume 91.6 fL (80.0-100.0); Mean Platelet Volume 11.6 fL (9.4-12.4); Monocytes # (auto) 0.66 K/uL (0.24-0.82); Monocytes % (auto) 10.5 %; Neutrophils # (auto) 4.05 K/uL (1.4-6.5); Neutrophils % (auto) 64.2 %; Platelet Count 132 K/uL (130-400); RDW Coefficient of Variation 13.2 % (11.5-14.5); RDW Standard Deviation 45.2 fL (36.4-46.3); Red Blood Count 4.27 M/uL (4.63-6.08); White Blood Count 6.31 K/ul (4.8-10.8)
[2021-12-02] MEDS ORDERED: SUCCINYLCHOLINE CHLORIDE 20 MG/ML 10 ML VIAL IV ONE (10:32)
[2021-12-02] MEDS ORDERED: ePHEDrine sulfate 50 MG/ML AMP ONE (10:32)
[2021-12-02] MEDS ORDERED: ROCURONIUM BROMIDE 10 MG/ML 5 ML VIAL IV ONE ×4 (10:32→10:52)
[2021-12-02] MEDS ORDERED: LIDOCAINE 2% MPF LOCAL 5 ML VIAL INFIL ONE (10:34)
--- NOTE | 2021-12-02 10:35 | Gastroenterology Progress Note ---
Date of Service December 02, 2021 Assessment & Plan (1) Choledocholithiasis: Plan Postprocedure day #1 from ERCP for choledocholithiasis. No evidence of any bleeding infection or other complications. Further care by surgery - waiting cholecystectomy. Admission and Anticipated Discharge Date Admission Date: November 30, 2021 Supervising Physician Co-Signing Physician Notes Late entry: Patient was seen and examined on 12/02 with AUDREY Pineda whose note reflects our findings and plan. Subjective Mr. Aldo Cota is a 71-year-old male who underwent ERCP yesterday by Dr. Álvarez with sphincterotomy and balloon extraction of choledocholithiasis. He is doing well today. No pain or nausea. LFTs are improved. Laparoscopic cholecystectomy is planned by Dr. Peralta today. Review of Systems Review of Systems: ROS: Gen: Denies weakness, fevers, weight loss Eyes: No eye redness, or pain, no recent vision changes Resp: No SOB, no cough Cardio: No palpitations/irregular beats, no chest pain GI: As per HPI. Otherwise negative : Denies pain on urination Skin: No jaundice, itching or new rashes Physical Exam Constitutional: well developed and cooperative Eyes: PERRL, conjunctivae normal, anicteric sclerae Respiratory: normal respiratory effort, lungs clear to auscultation Cardiovascular: RRR, no murmur, no edema Gastrointestinal (Abdomen): normal bowel sounds, soft, nontender, no hepa tosplenomegaly Skin: no rashes, warm and dry normal turgor Neurologic: PERRL, EOMI, accommodation nl, no face palsy, no dysarthria julia ke; not confused Psychiatric: A+Ox3, euthymic affect Results & Data ([facility]) Vital Signs (Past 12 Hours) Vital Signs Temp Pulse Resp BP BP Pulse Ox 12/02/21 09:45 36.9 C 63 20 159/91 H 93 12/02/21 07:38 36.6 C 59 L 18 149/92 H 91 12/02/21 03:30 36.6 C 53 L 18 143/89 H 95 Laboratory Results Total bilirubin 1.5 (4.8 yesterday), AST 105 (309), ALT 229 (309), alk phos 100 (93) Diagnostic Findings ERCP 12/01/2021: - Choledocholithiasis was found. Complete removal was accomplished by biliary sphincterotomy and balloon extraction. - One plastic biliary stent was placed into the common bile duct.
[2021-12-02] MEDS ORDERED: ACETAMINOPHEN 1,000 MG/100 ML VIAL IV ONE (11:18)
--- NOTE | 2021-12-02 11:18 | Post Operative Brief Note ---
PG Immediate Post Op with CF Date of Surgery December 02, 2021 Pre & Post Diagnosis Operation Date: 12/01/21 07:50 Pre-Op Diagnosis: choledocholithisis Post-Op Diagnosis: choledocholithisis Operation Date: 12/02/21 10:20 Pre-Op Diagnosis: CHOLEDOCHOLITHIASIS Post-Op Diagnosis: CHOLEDOCHOLITHIASIS, severe chronic cholecystitis, severe adhesions I identified the patient and participated in the time-out.: Yes Procedure Operation Date: 12/01/21 07:50 Actual Procedures p Endoscopic Retrograde Cholangiopancreatography, sphincterotomy, biliary stent(Not Applicable) - Eliecer Álvarez MD Operation Date: 12/02/21 10:20 Actual Procedures p Laparoscopic Cholecystectomy(Not Applicable) - Fran Peralta MD, FACS Enterolysis Surgeon Fran Peralta MD, FACS Airplane Pilot Chief Louise Odom-for lap role Estimated Blood Loss 10 Findings Consistent with Post-Op Diagnosis Patient had a very enormous omentum, severe chronic adhesions to the colon and mesentery Severely thickened scarred gallbladder consistent with severe chronic cholecystitis Specimens Specimen Description: A: Gallbladder and contents Drains Gerardo Drain (19 fr)
--- NOTE | 2021-12-02 11:49 | Operative Report (OR) ---
DATE OF OPERATION: 12/02/2021. NAME OF OPERATION: Laparoscopic cholecystectomy with enterolysis. PREOPERATIVE DIAGNOSIS: Chronic cholecystitis. POSTOPERATIVE DIAGNOSES: Chronic cholecystitis with severe chronic cholecystitis and severe adhesion s. STAFF SURGEON: Fran Peralta MD. SUPERVISOR SHOW OPERATIONS: Kiarra Ring PA-C. ANESTHESIA: General. DESCRIPTION OF PROCEDURE: The patient was brought in the operating room and placed on the operating table in supine position. His abdomen was prepped and draped in the usual fashion. My machine operator assistant hel ped with prepping, draping, removal of the gallbladder and closure of the wounds. Incision was made using 0.5% plain Marcaine to anesthetize all incisions above the umbilicus, carrying dissection down, placing a Veress needle producing pneumoperitoneum, placing an 11 mm port. Under visualization, the patient had an enormous omentum up over the liver. We placed him in reverse Trendelenburg position, rotated to the left. Three 5 mm ports were placed, one cephalad and two laterally, all under visual ization. As we tried to dissect the gallbladder free. There were severe adhesions of the colon and m esentery to the gallbladder. I required a fourth 5 mm port in the lower abdomen to reflect the tissu e cephalad. Gradually, we were able to mobilize the tissue and identified the gallbladder. This was through ente rolysis and lysis of adhesions, severe chronic disease. We were able to identify the cystic duct and cystic artery. These were clipped and transected, then the gallbladder dissected away from the live r bed in the usual fashion, removed through the umbilical site using a 5 mm camera. Prior to this, a large Gerardo drain #19 was placed into the subhepatic space through the lateral 5 mm port site and se cured in place using 3-0 nylon suture. All ports were then removed. The gallbladder removed from th e umbilical site. I had to enlarge the fascial defect because of the size of the gallbladder and sto martin. All ports were removed. Fascia at the umbilicus closed using 0 PDS suture. The skin was reapp roximated using 4-0 nylon suture. The patient was transferred to recovery room in stable condition. Job ID: [id number]
[2021-12-02] MEDS ORDERED: oxyCODONE HCL IR 5 MG TAB (IMMEDIATE RELEASE) PO PRN (12:06)
[2021-12-02] MEDS ORDERED: PROMETHAZINE HCL 12.5 MG in SODIUM CHLORIDE 0.9% 50 ML IV PRN (12:06)
[2021-12-02] MEDS: HYDROmorphone INJ 0.5 MG/0.5 ML SYR IV PRN (12:27)
[2021-12-02] MEDS: amLODIPine BESYLATE 5 MG TAB PO SCH (12:32)
--- NOTE | 2021-12-02 13:40 | Hospitalist Progress Note ---
Date of Service December 02, 2021 Assessment & Plan (1) Choledocholithiasis: Plan: Choledocholithiasis without cholecystitis MRCP with nonobstructing CBD stone, ductal dilation, multiple gallbladder stones no evidence of acute cholecystitis Patient with abdominal pain which improved, remains resolved Bilirubin and LFTs downtrending S/p ERCP with stone removal and stent placement. Will have outpatient follow- up in several weeks for removal S/p cholecystectomy 12/02. Chronic cholecystitis with severe adhesions were present, with adherence to colon/mesentery/gallbladder. procedure required lysis adhesions, additional port placement, and enlargement of fascial defect. Cipro twice daily started given findings No leukocytosis Afebrile (2) HTN (hypertension): Plan: Continue amlodipine 10mg PO daily Blood pressure adequately controlled (3) Hyperlipidemia: Plan: Continue atorvastatin 20mg PO daily (4) Benign prostatic hyperplasia: Plan: Continue alfuzosin 10mg PO QPM (5) GERD (gastroesophageal reflux disease): Plan: Continue pantoprazole Plan: VTE Prophylaxis - Lovenox 40mg SQ daily Diet - NPO Disposition - admit to med/surg Admission and Anticipated Discharge Date Admission Date: November 30, 2021 Subjective Seen in the morning prior to surgery. Pending lap cholecystectomy at 1030 this morning. No abdominal pain present No chest pain, chest pressure, shortness of breath, fever, chills. No BM yet today. No new symptoms, was seen by GI and is aware he will have his stent removed as outpatient. No nausea this morning. Review of Systems Review of Systems: All systems reviewed & are unremarkable except as noted in Subjective Physical Exam Physical Exam: General: Examined in bed prior to lap cholecystectomy A&Ox3. NAD. Cooperative. HEENT: Atraumatic, normocephalic. Vision and hearing intact. Pulm: CTAB A&P. -wheezes, -rales, -rhonchi. Symmetrical chest rise. No increase in work of breathing. No respiratory distress. Cardiac: RRR, -mrg. Radial pulses intact and symmetrical. Abdominal: Nontender, nondistended, soft. BS present. No rebound. Lewis's not present Results & Data Results & Data ([facility]) Vital Signs (Past 12 Hours) Vital Signs Temp Pulse Pulse Resp BP BP Pulse Ox 12/02/21 13:00 50 L 18 136/81 97 12/02/21 12:30 36.5 C 50 L 12 145/82 H 95 12/02/21 12:00 36.6 C 56 L 18 130/70 12/02/21 11:50 56 L 16 134/79 91 12/02/21 11:40 58 L 16 137/77 92 12/02/21 11:33 36.1 C L 55 L 16 127/78 95 12/02/21 09:45 36.9 C 63 20 159/91 H 93 12/02/21 07:38 36.6 C 59 L 18 149/92 H 91 12/02/21 03:30 36.6 C 53 L 18 143/89 H 95 PG Care Time/CCT Total # of Minutes Spent Total Time Spent with Patient: Total time spent is greater than 50% in coordination of care (as documented) at patient's floor/unit and/or counseling patient: Coding Level of Care Code 58838 Subseq Hosp Care Lvl 2 Diagnoses Choledocholithiasis K80.50 HTN (hypertension) I10 Hyperlipidemia E78.5 Benign prostatic hyperplasia N40.0 GERD (gastroesophageal reflux disease) K21.9
--- NOTE | 2021-12-02 15:40 | Anesthesiology Progress Note ---
Date of Service December 02, 2021 Anesthesia Post Procedure Vital Signs Vital Signs: Temp Pulse Pulse Resp BP BP Pulse Ox 12/02/21 14:59 36.3 C L 60 14 152/84 H 93 12/02/21 13:50 36.5 C 60 18 145/79 H 95 12/02/21 13:00 50 L 18 136/81 97 12/02/21 12:30 36.5 C 50 L 12 145/82 H 95 12/02/21 12:00 36.6 C 56 L 18 130/70 12/02/21 11:50 56 L 16 134/79 91 12/02/21 11:40 58 L 16 137/77 92 12/02/21 11:33 36.1 C L 55 L 16 127/78 95 12/02/21 09:45 36.9 C 63 20 159/91 H 93 12/02/21 07:38 36.6 C 59 L 18 149/92 H 91 12/02/21 03:30 36.6 C 53 L 18 143/89 H 95 12/01/21 22:21 36.5 C 63 17 132/79 92 12/01/21 19:10 36.6 C 56 L 17 129/78 94 12/01/21 18:00 36.6 C 54 L 16 130/80 93 12/01/21 17:30 36.8 C 56 L 16 126/75 94 12/01/21 16:45 36.5 C 67 14 107/80 93 12/01/21 16:35 67 14 124/86 92 12/01/21 16:26 36.6 C 73 14 107/80 92 Pain Intensity Chest: Pain Intensity: 2 Abdomen: Pain Intensity: 5 Transfer of Care Handoff Completed per policy Notes Mental Status: alert / awake / arousable Patient Amnestic to Procedure: Yes Nausea / Vomiting: adequately controlled Pain: adequately controlled Airway Patency, RR, SpO2: stable & adequate BP & HR: stable & adequate Hydration State: stable & adequate Anesthetic Complications: no major complications apparent
[2021-12-02] MEDS: CIPROFLOXACIN / D5W 400 MG/200 ML BAG IV SCH (20:32)
[2021-12-02] MEDS: ALFUZOSIN HCL 10 MG TAB PO SCH (20:32)
[2021-12-02] MEDS: DOCUSATE SODIUM/SENNA 50/8.6MG TAB PO SCH (20:32)
[2021-12-03 06:21] LABS: Basophils # (auto) 0.01 K/uL (0-0.2); Basophils % (auto) 0.1 %; Eosinophils # (auto) 0.01 K/uL (0-0.50); Eosinophils % (auto) 0.1 %; Hematocrit (blood only) 38.1 % (40.1-51.0); Immature Granulocytes # (auto) 0.03 K/uL (0.00-0.02); Immature Granulocytes % (auto) 0.3 %; Lymphocytes # (auto) 0.79 K/uL (1.2-3.4); Mean Corpuscular Hemoglobin 30.4 pg (25.0-34.0); Mean Corpuscular Hgb Conc 34.1 g/dL (32.0-36.0); Mean Platelet Volume 12.6 fL (9.4-12.4); Monocytes # (auto) 0.51 K/uL (0.24-0.82); Monocytes % (auto) 5.8 %; Neutrophils % (auto) 84.7 %; Platelet Count 144 K/uL (130-400); RDW Coefficient of Variation 12.7 % (11.5-14.5); RDW Standard Deviation 41.4 fL (36.4-46.3); Red Blood Count 4.28 M/uL (4.63-6.08); White Blood Count 8.75 K/ul (4.8-10.8)
[2021-12-03 06:44] LABS: Creatinine Clr Calc Pharmacy 98.1 ml/min; Est GFR (African American) 99.7 ml/min
[2021-12-03 07:15] LABS: Albumin Globulin Ratio 1.4 (0.9-2); Albumin Level 3.4 gm/dl (3.4-5.0); BUN Creatinine Ratio 13.1 (10-20); Bilirubin Direct 0.3 mg/dl (0-0.2); Calcium 8.3 mg/dl (8.5-10.1); Creatinine Clr Calc Pharmacy 100.4 ml/min; Est GFR (African American) 100.7 ml/min; Est GFR (Non-African American) 86.9 ml/min; Globulin 2.5 gm/dl (2.5-4.0); Potassium 3.8 mmol/L (3.5-5.1); Total Protein 5.9 gm/dl (6.0-8.3)
--- NOTE | 2021-12-03 07:57 | Surgery Progress Note ---
Date of Service December 03, 2021 Assessment & Plan (1) Status post laparoscopic cholecystectomy: Plan: Patient doing well with drain in place Appears to be serous drainage-leave until next week Instructions in the discharge Will continue on Cipro for 1 week Pain medication also ordered Discharge home today if okay with medical team Admission and Anticipated Discharge Date Admission Date: November 30, 2021 Results & Data ([facility]) Vital Signs (Past 12 Hours) Vital Signs Temp Pulse Resp BP Pulse Ox O2 Del Method O2 Flow Rate 12/03/21 07:25 36.6 C 55 L 16 138/85 95 Room Air 12/03/21 02:00 36.6 C 60 18 120/75 93 12/02/21 20:35 Nasal Cannula 2 12/02/21 23:09 36.6 C 57 L 18 123/75 94 Nasal Cannula 2 PG Care Time/CCT Total # of Minutes Spent Total Time Spent with Patient: Total time spent is greater than 50% in coordination of care (as documented) at patient's floor/unit and/or counseling patient: Coding Level of Care Code None Diagnoses Status post laparoscopic cholecystectomy Z90.49
[2021-12-03] MEDS: CIPROFLOXACIN / D5W 400 MG/200 ML BAG IV SCH (08:50)
[2021-12-03] MEDS: PANTOprazole 40 MG TAB PO SCH (08:55)
[2021-12-03] MEDS: FINASTERIDE 5 MG TAB PO SCH (08:55)
[2021-12-03] MEDS: DOCUSATE SODIUM/SENNA 50/8.6MG TAB PO SCH (08:55)
[2021-12-03] MEDS: CHOLECALCIFEROL 1,000 UNITS 25 MCG TAB PO SCH (08:55)
[2021-12-03] MEDS: ASCORBIC ACID 500 MG TAB PO SCH (08:56)
[2021-12-03] MEDS: ATORVASTATIN 20 MG TAB PO SCH (08:56)
[2021-12-03] MEDS: amLODIPine BESYLATE 5 MG TAB PO SCH (08:57)
[2021-12-03] MEDS ORDERED: HEPARIN SOD 5,000 UNIT/0.5 ML VIAL SQ SCH (09:00)
--- NOTE | 2021-12-03 17:21 | Discharge Summary ---
Date of Service December 03, 2021 Admission HPI Per Admitting Provider Aldo Cota is a 71 year old male with known cholelithiasis who presents to the ER with abdominal pain. He reports epigastric pain which started when she finished breakfast at 12pm radiating to back. Severity 7/10 on arrival to the ER, 9/10 at worst, currently 2/10. No associated nausea, vomiting, diarrhea, bright red blood in stool, melena. He notes slight constipation. In the ER CT A/P concerning for choledocholithiasis with common bile duct dilatation to 1.2cm, LFT within normal limits except for AST mildly elevated 41 U/L. He was referred to medicine for admission and ongoing management of choledocholithiasis. Principal Diagnosis Endoscopic retrograde cholangiopancreatography with sphincterotomy and biliary stent placed 12/01/2021 Laparoscopic cholecystectomy 2Dr. Fran Peralta Discharge Exam Patient was felt fit to be discharged home surgical MARY drain is in place to be addressed by surgeons post discharge Discharge Data Allergies Allergy/AdvReac Type Severity Reaction Status Date / Time Penicillins Allergy Unknown hives Verified 10/28/21 08:35 Consultations 11/30/21 15:01 ED Decision to Admit Stat 11/30/21 21:24 Consult General Surgery Routine 12/01/21 08:43 Consult Gastroenterology Routine Procedures Performed Operation Date: 12/01/21 07:50 Actual Procedures p Endoscopic Retrograde Cholangiopancreatography, sphincterotomy, biliary stent(Not Applicable) - Eliecer Álvarez MD Operation Date: 12/02/21 10:20 Actual Procedures p Laparoscopic Cholecystectomy(Not Applicable) - Fran Peralta MD, FACS Ordered Studies 11/30/21 13:22 CT abd pelvis IV con only Stat 11/30/21 16:04 MR MRCP Urgent 12/01/21 [place] ERCP biliary ductal Routine Hospital Course (1) Choledocholithiasis: Choledocholithiasis without cholecystitis MRCP with nonobstructing CBD stone, ductal dilation, multiple gallbladder stones no evidence of acute cholecystitis S/p ERCP with stone removal and stent placement. Placed 12/01/2021will have outpatient follow-up in several weeks for removal [facility] S/p laparoscopic cholecystectomy 12/02/21. Chronic cholecystitis with severe adhesions were present, with adherence to colon/mesentery/gallbladder. procedure required lysis adhesions, additional port placement, and enlargement of fascial defect. Patient discharged with surgical drain and Augmentin oral antibiotic therapy (2) HTN (hypertension): Continue amlodipine 10mg PO daily (3) Hyperlipidemia: Continue atorvastatin 20mg PO daily (4) Benign prostatic hyperplasia: Continue alfuzosin 10mg PO QPM (5) GERD (gastroesophageal reflux disease): Continue pantoprazole Total Time Total Time Spent Total Time Spent (In Minutes): It required greater than 30 minutes to prepare this patient for discharge Discharge Plan Discharge Items Patient Disposition: Home - Self-Care Reason For Visit: CHOLEDOCHOLITHIASIS Discharge Diagnosis: Choledocholithiasis and chronic cholecystitis Activity: Per Instructions section Activity Comment: light activity for 4 weeks Lifting: No more than 10 pounds Bathing Comment: may shower; no soaking in tubs/pools Sexual Activity: When tolerated Exercise/Sports: Wait until after follow-up appointment Exercise Comment: wait 4 weeks Driving/Machine Use: no driving while taking narcotics for pain Non-emergency contact: Primary Care Provider and Surgeon Call non-emergency contact if: you have any medication questions, your symptoms worsen, your pain is not controlled, your pain is concerning for you, you have a fever, your temperature is above 101.5, your wound has increased redness, your wound has increased drainage and your wound pain has increased Follow-up/Referrals: Fran Peralta MD, FACS [Physician] - 12/09/21 9:00 am Barrett Whitney, [Primary Care Provider] - Diet: Regular Addtl Attending Provider Instructions: SPECIAL CARE INSTRUCTIONS: Avoid constipation- * May Use Senokot S and Milk of Magnesium twice daily as directed on the package * SPECIAL CARE INSTRUCTIONS: * Cover incisions and change daily for comfort/drainage. * Empty drain 2-3 times per day and record. * May use ibuprofen for pain as tolerated. * Expect some swelling and bruising. Call your doctor if: * Temperature above 101 degrees * Pain not relieved by pain medicine ordered * There is increased drainage or redness from any incision * You have any unanswered questions or concerns [phone]. Call your doctor if: * Temperature above 101 degrees * Pain not relieved by pain medicine ordered * There is increased drainage or redness from any incision * You have any unanswered questions or concerns [phone]. FOLLOW UP VISIT: If not already scheduled, please call the office for a follow-up visit. For next Wednesday or Wednesdaydrain removal and some sutures OFFICE PHONE NUMBER: Dr. Peralta Office Pending Studies at Discharge: No Studies:: surgical pathology Stand-Alone Forms: [facility], Opioid Pain Management, Smoking Cessation Medications and DC Order Prescriptions: New amoxicillin-pot clavulanate 875-125 mg tablet 1 tab PO BID Qty: 10 0RF hydrocodone-acetaminophen 5-325 mg tablet 1 tab PO Q4H PRN (Reason: pain) Qty: 30 0RF Rx Instructions: For severe pain you may take 2 tablets but not more than 6 tablets in a single day hydrocodone-acetaminophen 5-325 mg tablet 1 tab PO Q4H PRN (Reason: pain) Qty: 14 0RF Continued ascorbic acid (vitamin C) 1,000 mg tablet 1 g PO QAM cholecalciferol (vitamin D3) 50 mcg (2,000 unit) capsule 50 mcg PO QAM atorvastatin 20 mg Tablet 20 mg PO QAM amlodipine 10 mg Tablet 10 mg PO QAM hydrochlorothiazide 12.5 mg Tablet 12.5 mg PO QAM aspirin 81 mg tablet,delayed release (DR/EC) 81 mg PO QPM omeprazole 20 mg capsule,delayed release(DR/EC) 20 mg PO QAM finasteride 5 mg tablet 5 mg PO QAM alfuzosin 10 mg tablet extended release 24 hr 10 mg PO QPM Discharge Orders: Discharge Order (Routine); Ordered 12/03/21 Ordered By: Zhen Watters/Other Patient Handouts: Joshua Hoover Drain Tube Dc, Post Op Drain Emptying Steps Admission Data Admit Date/Time: 11/30/21 15:13 Attending Provider: Zhen Polanco Admit Provider: Weston Zuleta Primary Care Provider: Barrett Whitney Other Providers: Weston Zuleta ; Fran Peralta ; Komal Kuhn Other Interventions: Discharge Summary Assessment (RN) Last Done: 12/03/21 08:31 Coding Level of Care Code D/C DAY MANAGEMENT >30 MINS Diagnoses Choledocholithiasis K80.50 HTN (hypertension) I10 Hyperlipidemia E78.5 Benign prostatic hyperplasia N40.0 GERD (gastroesophageal reflux disease) K21.9
== END 2021-12-03 11:20 | disposition home or self-care (01) | DRG 419 ==
LOC: ED 12:51 → 3E 15:13 → SUATTDRO 15:13 → 3E 16:29